=== PATIENT | male | born 1960 | race African-American/Black ===

== ENCOUNTER 2017-08-06 12:18 | Inpatient (IN) ==
[2017-08-06] MEDS ORDERED: Naloxone 0.4 MG/ML INJ IVP PRN (15:33)
--- NOTE | 2017-08-06 16:04 | Internal Med History&Physical ---
<Geni Wright - Last Filed: 08/06/17 16:44> Date of Encounter: 08/06/17 Time of Encounter: 16:00 Assessment and Plan (1) Hyponatremia Current visit: No Status: Acute 1 patient has a history of alcohol abuse consuming approximately a 12 pack daily. He had some outpatient labs drawn and was notified his sodium was 117. This is most likely related to fluid overload secondary to hepatic cirrhosis/ heart failure. Chest x-ray did reveal cardiomyopathy with mild vascular congestion. He does have ascites on his CT, with some lower extremity edema and a positive fluid wave. We will place patient on fluid restriction and initiate Lasix 20 mg every 8 hours 2 closely monitor chemistry every 6 hours 3 we will consult nephrology 4 place on seizure precautions-he does not appear to be displaying any seizure activity at this time he is somewhat confused (2) Congestive heart failure Current visit: Yes Status: Acute 1 patient has new onset of atrial flutter CT of abdomen did show some ascites as well as chest x-ray cardiomegaly with mild vascular congestion. BNP 1172 He does have some pedal edema and scattered rhonchi. We will obtain stat cardiac echo 2 Lasix IV 20 mg every 8 hours 3 continuous cardiac monitoring 4 consult cardiology Qualifiers: Congestive heart failure type: unspecified congestive heart failure type Congestive heart failure chronicity: acute Qualified Code(s): I50.9 - Heart failure, unspecified (3) History of alcoholism Current visit: Yes Status: Acute 1 patient consumes approximately 12 beers daily his last drink was yesterday for signs or symptoms of withdrawal this time. We will place on CIWA precautions 2 we will administer banana bag (4) Alcoholic hepatitis with ascites Current visit: No Status: Acute 1 patient has a history of alcohol consumption 12 beers daily presents with hyponatremia AST was 475 AST 423 alkaline phosphatase 157 total bili was 2.[address] of his abdomen did reveal mild ascites arytenoid edema diffuse body wall edema. Hepatomegaly and hepatic steatosis continue to monitor ammonia level. We will start on lactulose We will obtain a ultrasound of liver We will avoid hepatotoxins (5) Atrial flutter Current visit: Yes Status: Acute 1 this appears to be a new onset atrial flutter. We will obtain stat echo 2 continuous cardiac monitoring 3 consult cardiology Qualifiers: Atrial flutter type: unspecified Qualified Code(s): I48.92 - Unspecified atrial flutter (6) DVT prophylaxis Current visit: Yes Status: Acute Patient is lately it has are presently [address] on SCDs (7) Tobacco use Current visit: Yes Status: Acute Nicotine patch Internal Medicine - H&P: HPI Chief complaint: Hyponatremia Admitted From: Hospital to Hospital Transfer History of present illness: Mr. Vinson is a 56 year old male patient is a poor historian secondary to mental state, information mostly obtained from medical records and nursing staff. Apparently the patient has a history of COPD he is a smoker as well as a 12 pack of beer daily, he did have an anaphylactic reaction secondary to shellfish requiring tracheostomy a few years ago. Apparently the patient had some outpatient labs completed he was notified by physician that his sodium was low and he needs to go to the ER. He presented to the [facility] emergency department at that time his sodium was 117 cm 5 ammonia was 49 no leukocytosis iplatelets 115, PT 21.9 INR 2 PTT 32.9 troponin 0.02 BNP 1172 AST 475 AST 423 alkaline phosphatase 157 ammonia was 49 total bilirubin 2.9 and he was in atrial flutter and with RVR chest x-ray cardiomyopathy with mild vascular congestion CT of abdomen was completed which did reveal nonspecific mild ascites peritoneal edema and diffuse body wall edema hepatomegaly and hepatic steatosis and some perihepatic ascites. There is no evidence of mass or biliary obstruction. He was given IV Lasix. He was transferred to [facility] for further workup and evaluation. Presently patient is alert oriented 3 does follow simple commands however he does make inappropriate statements and at times has difficulty following conversation. Cranial nerves II through XII are intact. Full strength in all 4 extremities. Pupils PERRLA sclera icterus, lung sounds with some scattered rhonchi heart sounds regular S1 and S2 with no rubs clicks gallops or murmurs noted. Abdomen soft nontender he does have a fluid wave. He has slight pedal edema bilaterally. Patient does admit to not feeling well exertional shortness of breath and swelling over the past few months He appears to be sinus tachycardia on the monitor we will obtain EKG he is hemodynamically stable at this time. I reviewed this case with who agrees with plan. Past Med Surg Social Fam HX - Past Medical History Medical history: COPD, hypertension Psychiatric history: no psych history - Past Surgical History Surgical History: tracheostomy - Social History Smoking Status: Current every day smoker Packs per day: 0.5 Smokeless Tobacco Status: No Alcohol use: heavy Drug use: marijuana - Additional Family History Additional family history: Unable to review at this time due to mental state Internal Medicine - H&P: Meds No Known Home Drugs 08/06/17 [History] 3 Allergy/AdvReac Type Severity Reaction Status Date / Time shellfish derived Allergy Anaphylaxis Verified 08/06/17 10:10 ROS unobtainable: due to mental status All Systems PM: A 10-system review of systems was performed and is negative for pertinent findings except as documented above in the HPI. - Constitutional Vitals: Temp Pulse Resp BP Pulse Ox 97.4 F L 112 16 126/93 97 08/06/17 14:42 08/06/17 15:08 08/06/17 14:42 08/06/17 14:42 08/06/17 14:42 General appearance: Present: A&O X 3, pleasant Exam: At times has difficulty following conversation inappropriate statements at times - Eye Eye exam: Present: scleral icterus Pupils: Present: PERRL - Neck Neck exam general surgery: Present: supple, trachea midline. Absent: lymphadenopathy - Respiratory Respiratory exam: Present: rhonchi. Absent: accessory muscle use, rales, wheezes - Cardiovascular Cardiovascular exam: Present: RRR, +S1, +S2. Absent: diastolic murmur, gallop, rubs, systolic murmur - GI/Abdominal GI/Abdominal exam: Present: normal bowel sounds, soft, no peritoneal signs. Absent: distended, tenderness - Extremities Exam Extremities exam: Present: pedal edema, warm, radial pulses palpable and symmetrical. Absent: calf tenderness, cyanotic - Neurological Exam Neurological exam: Present: CN II-XII intact, oriented X3, no focal deficits, strengths equal and symetr throughout. Absent: pronater drift, facial droop, speech deficit - Skin Skin exam: Present: dry, intact Internal Med - H&P Results - EKG Data EKG comments: 08/06/17 16:25 Atrial flutter with RVR-reviewed with Dr. Hernandez - Diagnostic Studies Other Images Additional comments: Chest x-ray per radiology read cardiomegaly with mild vascular congestion CT abdomen and pelvis with no IV or oral contrast per radiology read: nonspecific mild ascites. She will edema and diffuse body wall edema which may relate to hyperkalemia in the setting of dilated cardiomyopathy. Findings suggesting anemia Hepatomegaly and hepatic steatosis there is some perihepatic ascites. Acute on chronic hepatitis cannot be excluded. There is no evidence of mass or biliary obstruction. <Cindy Nelson - Last Filed: 08/06/17 19:03> Date of Encounter: 08/06/17 Internal Medicine - H&P: HPI History of present illness: Mr. Vinson is a 56 year old male All Systems PM: A 10-system review of systems was performed and is negative for pertinent findings except as documented above in the HPI. - Constitutional Vitals: Temp Pulse Resp BP Pulse Ox 97.4 F L 112 16 126/93 97 08/06/17 14:42 08/06/17 15:08 08/06/17 14:42 08/06/17 14:42 08/06/17 14:42 Internal Med - H&P Results - Impressions ITS Impressions Head CT 08/06/17 15:20 IMPRESSION: No acute intracranial abnormality. D/ / Nicholas Vicente MD / Nicholas Vicente MD Interpreting Provider: Nicholas Vicente MD - Attending Attestation I have personally performed a face to face evaluation on this patient and I discussed the assessment and plan with the nurse practitioner. I have reviewed and agree with the documented care plan. History and Exam by me shows: Mr. Vinson is a 56 year old male patient is a poor historian secondary to mental state, information mostly obtained from medical records and nursing staff. Apparently the patient has a history of COPD he is a smoker as well as a 12 pack of beer daily, he did have an anaphylactic reaction secondary to shellfish requiring tracheostomy a few years ago. Apparently the patient had some outpatient labs completed he was notified by physician that his sodium was low and he needs to go to the ER. He presented to the [facility] emergency department at that time his sodium was 117 cm 5 ammonia was 49 no leukocytosis iplatelets 115, PT 21.9 INR 2 PTT 32.9 troponin 0.02 BNP 1172 AST 475 AST 423 alkaline phosphatase 157 ammonia was 49 total bilirubin 2.9 and he was in atrial flutter and with RVR chest x-ray cardiomyopathy with mild vascular congestion CT of abdomen was completed which did reveal nonspecific mild ascites peritoneal edema and diffuse body wall edema hepatomegaly and hepatic steatosis and some perihepatic ascites. Gen : A, A, Oriented to self only..looks confused Chest : Diminished BS b/l, mild crackles Heart : S1 S2 + Sinus tachycardia Abd: Mildly distended, NT Ext : Diffuse b/l LE edema a/p 1. Acute atrial flutter with RVR due to Alcohol withdrawal DT's 2. Alcohol withdrawal symptoms Improved Now in sinus rythm Cont CIWA protocol ASA 3. Diffuse anasarca 4. Possible non ischemic cardiomyopathy check stat 2 D Echo IV Lasix 20 Q8hr 5. Hyponatremia due to volume overload check frequent Na levels IV Lasix Nephro consulted
[2017-08-06] MEDS ORDERED: Thiamine (B-1) 100 MG, Folic Acid 1 MG, MVI, adult with vitamin K 10 ML in 0.9 % Sodi... IVPB SCH (18:00)
[2017-08-06 19:16] LABS: BUN/Creatinine Ratio 12 (6-26); Blood Urea Nitrogen 10 mg/dL (8-26); Calcium 9.1 mg/dL (8.6-10.8); Carbon Dioxide 17 mEq/L (19-29); Chloride 94 mEq/L (98-109); Glucose 94 mg/dL (70-99); Magnesium 1.5 mg/dL (1.6-2.6); Osmolality,Calculated 255 (280-300); Potassium 4.2 mEq/L (3.5-4.5); eGFR For African Americans > 60 (> 60); eGFR For Non-African Americans > 60 (> 60)
[2017-08-06 19:17] LABS: Sodium 123 mEq/L (136-145)
[2017-08-06 19:21] LABS: Basophils % 0.1 %; Hematocrit 30.7 % (37.5-50.1); Hemoglobin 11.6 g/dL (12.9-16.9); Immature Granulocytes % 0.3 % (0-4); Lymphocytes % 28.3 %; Mean Corpuscular Hemoglobin 31.4 pg (28.0-33.3); Mean Platelet Volume 10.1 fL (9.4-12.4); Monocytes # 0.8 K/mcL (0.0-1.3); Monocytes % 11.8 %; Neutrophils # 4.2 K/mcL (1.6-8.9); Nucleated Red Blood Cells 0.3 /100 WBC (0); Platelet Count 129 K/mcL (140-400); Red Cell Distribution Width 12.9 % (11.5-14.5); Segmented Neutrophils % 59.5 %
[2017-08-06 19:24] LABS: Mean Corpuscular HGB Conc 37.8 g/dL (31.6-35.5)
[2017-08-06] MEDS: *HR* LORazepam 2 MG/ML VIAL IVP PRN ×2 (20:11→21:28)
[2017-08-06] MEDS: Furosemide 20 MG/2 ML VIAL IVP SCH (20:11)
[2017-08-06] MEDS: Lactulose Oral Soln 20 GM/30 ML UDC PO SCH (20:11)
[2017-08-06] MEDS ORDERED: Magnesium Sulfate 2 GM in D5% in Water 100 ML IVPB ONE (20:31)
[2017-08-06 22:14] LABS: BUN/Creatinine Ratio 11 (6-26); Blood Urea Nitrogen 9 mg/dL (8-26); Calcium 8.5 mg/dL (8.6-10.8); Carbon Dioxide 17 mEq/L (19-29); Chloride 94 mEq/L (98-109); Glucose 111 mg/dL (70-99); Osmolality,Calculated 259 (280-300); Potassium 3.8 mEq/L (3.5-4.5); Sodium 125 mEq/L (136-145); eGFR For African Americans > 60 (> 60); eGFR For Non-African Americans > 60 (> 60)
[2017-08-07] MEDS: *HR* LORazepam 2 MG/ML VIAL IVP PRN ×6 (00:06→21:32)
[2017-08-07 03:51] LABS: Basophils % 0.1 %; Hematocrit 31.6 % (37.5-50.1); Hemoglobin 11.6 g/dL (12.9-16.9); Immature Granulocytes % 0.3 % (0-4); Lymphocytes # 0.9 K/mcL (0.6-4.6); Mean Corpuscular HGB Conc 36.7 g/dL (31.6-35.5); Mean Corpuscular Hemoglobin 30.9 pg (28.0-33.3); Mean Corpuscular Volume 84.3 fL (83.0-100.0); Mean Platelet Volume 10.1 fL (9.4-12.4); Monocytes # 0.7 K/mcL (0.0-1.3); Monocytes % 9.4 %; Neutrophils # 5.8 K/mcL (1.6-8.9); Nucleated Red Blood Cells 0.3 /100 WBC (0); Platelet Count 148 K/mcL (140-400); Red Blood Count 3.75 M/mcL (4.19-5.50); Red Cell Distribution Width 12.9 % (11.5-14.5); Segmented Neutrophils % 78.2 %
[2017-08-07 03:59] LABS: BUN/Creatinine Ratio 12 (6-26); Blood Urea Nitrogen 10 mg/dL (8-26); Calcium 8.8 mg/dL (8.6-10.8); Carbon Dioxide 18 mEq/L (19-29); Chloride 94 mEq/L (98-109); Glucose 117 mg/dL (70-99); Osmolality,Calculated 262 (280-300); Potassium 3.9 mEq/L (3.5-4.5); Sodium 126 mEq/L (136-145); eGFR For African Americans > 60 (> 60); eGFR For Non-African Americans > 60 (> 60)
[2017-08-07] MEDS: Furosemide 20 MG/2 ML VIAL IVP SCH ×2 (03:59→12:09)
[2017-08-07 04:00] LABS: BUN/Creatinine Ratio 12 (6-26); Blood Urea Nitrogen 10 mg/dL (8-26); Calcium 8.7 mg/dL (8.6-10.8); Carbon Dioxide 18 mEq/L (19-29); Chloride 94 mEq/L (98-109); Glucose 117 mg/dL (70-99); INR 1.9; Osmolality,Calculated 260 (280-300); Potassium 3.9 mEq/L (3.5-4.5); Prothrombin Time 20.6 Seconds (9.4-12.1); Sodium 125 mEq/L (136-145); eGFR For African Americans > 60 (> 60); eGFR For Non-African Americans > 60 (> 60)
[2017-08-07 04:03] LABS: Activated Partial Thrombo Time 30.7 Seconds (26.0-36.0)
[2017-08-07 08:31] LABS: BUN/Creatinine Ratio 12 (6-26); Blood Urea Nitrogen 10 mg/dL (8-26); Calcium 8.7 mg/dL (8.6-10.8); Carbon Dioxide 20 mEq/L (19-29); Chloride 93 mEq/L (98-109); Glucose 103 mg/dL (70-99); Osmolality,Calculated 263 (280-300); Potassium 3.9 mEq/L (3.5-4.5); Sodium 127 mEq/L (136-145); eGFR For African Americans > 60 (> 60); eGFR For Non-African Americans > 60 (> 60)
--- NOTE | 2017-08-07 09:54 | Cardiology Consult Note ---
<Keyshawn Watkins - Last Filed: 08/07/17 09:48> Date of Encounter: 08/07/17 Time of Encounter: 08:00 Assessment and Plan (1) Acute CHF (congestive heart failure) Current Visit: Yes Status: Acute Mild fluid overload on exam. BNP 1172. Na low. Unclear if systolic or diastolic. Check TTE. Agree with IV diuretic. Currently net negative 400ml. Low sodium diet. Daily weights. Further recommendation to follow TTE. Qualifiers: Congestive heart failure type: unspecified congestive heart failure type Qualified Code(s): I50.9 - Heart failure, unspecified (2) Atrial flutter Current Visit: Yes Status: Acute Atrial flutter rate controlled. Likely secondary to ETOH abuse. Continue beta- brennon. INR 2.0 on admission while not on anticoagulation. Not a good candidate for AC with elevated INR and ETOH abuse. Check TTE. Check TSH. Qualifiers: Atrial flutter type: unspecified Qualified Code(s): I48.92 - Unspecified atrial flutter (3) History of alcoholism Current Visit: Yes Status: Acute ETOH cessation. On withdrwl protocal. Discussion w patient/family: The assessment and plan as outlined above was discussed with the patient and/or family members who expressed understanding and agreement. All questions were answered. Thank you for involving us in the care of your patient. Please call with any questions. History of Present Illness Consult date: 08/07/17 Requesting physician: Cindy Nelson Consult reason: CHF Chief complaint: confusion History of present illness: Mr. Vinson is a 56 year old male who was instructed to go to the ER when he was found to have sodium at 117 by PCP. He whas a history of COPD, ETOH abise, and previous tracheostomy secondary to anaphylaxis from shell fish. On exam he is confused and hallucinating. No acute distress noted. He is laying in trendelenburg breathing normal. He is being treated for ETOH withdraw. Cardiology consulted for acute CHF and new atrial flutter. BNP found to be 3000. CXR showed cardiomegaly and vascular congestion. he has no previous history. Past Med Surg Social Fam HX - Past Medical History Source: old records reviewed, other (Patient confused and innappropiate) Medical history: COPD, hypertension Psychiatric history: no psych history - Past Surgical History Surgical History: tracheostomy - Social History Smoking Status: Current every day smoker Packs per day: 0.5 Smokeless Tobacco Status: No Alcohol use: heavy Drug use: marijuana Medications and Allergies No Known Home Drugs 08/06/17 [History] 3 Allergy/AdvReac Type Severity Reaction Status Date / Time shellfish derived Allergy Anaphylaxis Verified 08/06/17 10:10 All Systems Review: A 10-system review of systems was performed and is negative for pertinent findings except as documented above in the HPI. Physical Examination Vital Signs, Last 4 Hours Temp Pulse Resp BP Pulse Ox 08/07/17 09:03 114 08/07/17 08:10 97.4 F L 114 18 123/90 96 General: No Apparent Distress, Other (confused) HEENT: Atraumatic, Normocephaly, Mucus Membranes Moist Neck: No JVD, Normal carotid pulses Cardiac: Other (Irregular) Lungs: Normal Breath Sounds, No Wheeze, Rales, Rhonchi Neuro: Alert and responsive, No focal deficits noted Abdomen: Soft, Non-Tender Skin: No rashes noted on visualized skin Musculoskeletal: No Chest Wall Tenderness Extremities: No Clubbing, No Cyanosis, Normal Pulses, Other (1+ BLE edema) Results 08/07/17 03:07 08/07/17 07:14 Lab Results 08/06/17 08/06/17 08/06/17 16:06 16:06 16:06 WBC 7.1 Hgb 11.6 L Hct 30.7 L Plt Count 129 L INR APTT Sodium 123 L D Potassium 4.2 Chloride 94 L Carbon Dioxide 17 L BUN 10 Creatinine 0.84 Glucose 94 Calcium 9.1 Magnesium 1.5 L Troponin I 0.04 H* 08/06/17 08/06/17 08/07/17 21:52 21:52 03:07 WBC Hgb Hct Plt Count INR APTT Sodium 125 L Potassium 3.8 Chloride 94 L Carbon Dioxide 17 L BUN 9 Creatinine 0.85 Glucose 111 H Calcium 8.5 L Magnesium Troponin I 0.02 0.02 08/07/17 08/07/17 08/07/17 03:07 03:07 03:07 WBC 7.5 Hgb 11.6 L Hct 31.6 L Plt Count 148 INR 1.9 APTT 30.7 Sodium 125 L Potassium 3.9 Chloride 94 L Carbon Dioxide 18 L BUN 10 Creatinine 0.85 Glucose 117 H Calcium 8.7 Magnesium 2.0 Troponin I 08/07/17 08/07/17 03:07 07:14 WBC Hgb Hct Plt Count INR APTT Sodium 126 L 127 L Potassium 3.9 3.9 Chloride 94 L 93 L Carbon Dioxide 18 L 20 BUN 10 10 Creatinine 0.84 0.85 Glucose 117 H 103 H Calcium 8.8 8.7 Magnesium Troponin I - Imaging and Cardiology Echo: pending - EKG Interpretation EKG results cardiology: personally reviewed (2:1 atrial flutter, HR 113.) Consult Discharge Plan - Plan Referrals: Jody Whitley, [employer]WR[employer] [Primary Care Provider] - <CiscodebraKrysten - Last Filed: 08/07/17 12:47> Date of Encounter: 08/07/17 Assessment and Plan Discussion w patient/family: The assessment and plan as outlined above was discussed with the patient and/or family members who expressed understanding and agreement. All questions were answered. Thank you for involving us in the care of your patient. Please call with any questions. History of Present Illness History of present illness: Mr. Vinson is a 56 year old male All Systems Review: A 10-system review of systems was performed and is negative for pertinent findings except as documented above in the HPI. Physical Examination Vital Signs, Last 4 Hours Temp Pulse Resp BP Pulse Ox 08/07/17 11:41 96.2 F L 114 16 112/92 99 08/07/17 09:03 114 Results 08/07/17 03:07 08/07/17 07:14 Lab Results 08/06/17 08/06/17 08/06/17 16:06 16:06 16:06 WBC 7.1 Hgb 11.6 L Hct 30.7 L Plt Count 129 L INR APTT Sodium 123 L D Potassium 4.2 Chloride 94 L Carbon Dioxide 17 L BUN 10 Creatinine 0.84 Glucose 94 Calcium 9.1 Magnesium 1.5 L Troponin I 0.04 H* TSH 08/06/17 08/06/17 08/07/17 21:52 21:52 03:07 WBC Hgb Hct Plt Count INR APTT Sodium 125 L Potassium 3.8 Chloride 94 L Carbon Dioxide 17 L BUN 9 Creatinine 0.85 Glucose 111 H Calcium 8.5 L Magnesium Troponin I 0.02 0.02 TSH 08/07/17 08/07/17 08/07/17 03:07 03:07 03:07 WBC 7.5 Hgb 11.6 L Hct 31.6 L Plt Count 148 INR 1.9 APTT 30.7 Sodium 125 L Potassium 3.9 Chloride 94 L Carbon Dioxide 18 L BUN 10 Creatinine 0.85 Glucose 117 H Calcium 8.7 Magnesium 2.0 Troponin I TSH 08/07/17 08/07/17 03:07 07:14 WBC Hgb Hct Plt Count INR APTT Sodium 126 L 127 L Potassium 3.9 3.9 Chloride 94 L 93 L Carbon Dioxide 18 L 20 BUN 10 10 Creatinine 0.84 0.85 Glucose 117 H 103 H Calcium 8.8 8.7 Magnesium Troponin I TSH 1.150 - Attending Attestation I examined this patient and my medical decision-making was reviewed with the Resident Physician. I agree with the documented findings, disposition and treatment plan. Cardiology consulted for newly discovered atrial flutter and concern for CHF. BNP 3000 and CXR demonstrates vascular congestion. He has no prior documented history of CHF and history taking is not attainable given patients altered mental state. At this time recommend an echo for evaluation of structural heart disease. Agree with IV diuresis. Will increase BB for better HR control. Not a candidate for oral anticoagulants given coagulopathy and concern for compliance with medications.
[2017-08-07] MEDS: Thiamine (B-1) 100 MG TABLET PO SCH (09:57)
[2017-08-07] MEDS: Lactulose Oral Soln 20 GM/30 ML UDC PO SCH ×3 (09:57→19:31)
[2017-08-07] MEDS: Folic Acid 1 MG TABLET PO SCH (09:57)
[2017-08-07] MEDS: Pantoprazole 40 MG VIAL IVP SCH (09:58)
[2017-08-07 13:22] LABS: BUN/Creatinine Ratio 10 (6-26); Blood Urea Nitrogen 9 mg/dL (8-26); Calcium 8.9 mg/dL (8.6-10.8); Carbon Dioxide 23 mEq/L (19-29); Chloride 93 mEq/L (98-109); Glucose 99 mg/dL (70-99); Osmolality,Calculated 263 (280-300); Potassium 3.7 mEq/L (3.5-4.5); Sodium 127 mEq/L (136-145); eGFR For African Americans > 60 (> 60); eGFR For Non-African Americans > 60 (> 60)
--- NOTE | 2017-08-07 13:25 | Nephrology Consult Note ---
Date of Encounter: 08/07/17 Time of Encounter: 12:54 Assessment and Plan (1) Hyponatremia Current Visit: Yes Status: Acute 1. Hypervolemic Hypo-osmolar hyponatemia on exam. serum sodium has improved by 10 appropriately in the last 24 hrs. continue lasix, monitor I and O. F/U renal panel and magnesium, supplement as needed. Check UA. f/u 2d echo 2. Polysubstance abuse, alcohol withdrawl, cont CIWA protocol History of Present Illness - Reason for Consult hyponatremia - Chief Complaint Hyponatremia - History of Present Illness 56 yr old male with COPD, HTN, active smoker, alcoholic was sent to hospital as serum sodium was 117 on the out pt labs. pt was noted to be oriented x 3, but inappropriate intermittently. noted to be is A.FIB with RVR, hr 114. bp was stable CXR; mild vascular congestion CT ABD; mild ascites, diffuse body wall edema, hepatomegaly with steatosis CT head was neg for acute abnormality received iv lasix, placed on CIWA protocol and admitted for further management Past Med Surg Social Fam HX - Past Medical History Medical history: COPD, hypertension Psychiatric history: no psych history - Past Surgical History Surgical History: tracheostomy - Social History Smoking Status: Current every day smoker Packs per day: 0.5 Smokeless Tobacco Status: No Alcohol use: heavy Drug use: marijuana Medications and Allergies No Known Home Drugs 08/06/17 [History] 3 Allergy/AdvReac Type Severity Reaction Status Date / Time shellfish derived Allergy Anaphylaxis Verified 08/06/17 10:10 Review of Systems All Systems review (narrative): pt is oriented to self, knows that he is in [place], aware on month and yr. speech is slurred, restless in bed, unable to obtain much information Exam - Vital Signs Vital signs: Initial Vital Signs Temp Pulse Resp BP Pulse Ox 97.4 F L 112 16 126/93 97 08/06/17 14:42 08/06/17 14:42 08/06/17 14:42 08/06/17 14:42 08/06/17 14:42 Vital Signs - Last 8 Hours Temp Pulse Resp BP Pulse Ox 08/07/17 11:41 96.2 F L 114 16 112/92 99 08/07/17 09:03 114 08/07/17 08:10 97.4 F L 114 18 123/90 96 Intake and Output 08/06/17 08/07/17 08/07/17 23:59 07:59 15:59 Other: Meal npo # Voids 2 2 Weight 76.1 kg 77 kg Patient Weight 08/07/17 23:59 Weight 77 kg - General Appearance Exam: HENT; PERRL,no palor, icterus present NECK; supple, no JVD, no ldn CVS; s1s2 present. 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
--- NOTE | 2017-08-07 15:48 | Internal Med Progress Note ---
Date of Encounter: 08/07/17 Time of Encounter: 10:00 - Assessment and plan (1) Hepatic encephalopathy Current Visit: Yes Status: Acute Assessment and plan: Could be secondary to alcohol and hepatitis versus viral hepatitis and liver cirrhosis. We will check stat LFTs. Ammonia level was normal. Aspiration precautions. Check Tylenol level. (2) History of alcoholism Current Visit: Yes Status: Acute Assessment and plan: Alcohol withdrawal protocol. (3) Atrial flutter Current Visit: Yes Status: Acute Assessment and plan: He was found to be in atrial flutter. Currently in normal sinus rhythm. We will monitor on telemetry. Avoid anticoagulation due to alcoholism and high risk for falls and intracranial bleed. Qualifiers: Atrial flutter type: unspecified Qualified Code(s): I48.92 - Unspecified atrial flutter (4) DVT prophylaxis Current Visit: Yes Status: Acute Assessment and plan: SCDs. (5) Tobacco use Current Visit: Yes Status: Acute Assessment and plan: Nicotine replacement therapy. (6) Acute CHF (congestive heart failure) Current Visit: Yes Status: Acute Assessment and plan: IV Lasix. Cardiology consult. Qualifiers: Congestive heart failure type: unspecified congestive heart failure type Qualified Code(s): I50.9 - Heart failure, unspecified (7) Hyponatremia Current Visit: Yes Status: Acute Assessment and plan: We will institute fluid restriction 1400 mL daily. Monitor sodium levels daily. - Subjective Interval history: The patient cannot provide any history due to confusion and altered mental status. He was admitted yesterday for evaluation of altered mental status, atrial flutter and anasarca. - Constitutional Vitals: Temp Pulse Resp BP Pulse Ox 97.7 F 114 24 107/86 99 08/07/17 15:37 08/07/17 15:37 08/07/17 15:37 08/07/17 15:37 08/07/17 15:37 General appearance: Present: A&O X 3, pleasant - Eye Eye exam: Present: PERRL, conjuntiva pink, sclera anicteric Pupils: Present: PERRL - Respiratory Respiratory exam: Present: CTAB. Absent: accessory muscle use, rhonchi, wheezes - Cardiovascular Cardiovascular exam: Present: RRR, +S1, +S2. Absent: diastolic murmur, gallop, rubs, systolic murmur - GI/Abdominal GI/Abdominal exam: Present: normal bowel sounds, soft, no peritoneal signs. Absent: distended, tenderness - Extremities Exam Extremities exam: Present: warm, radial pulses palpable and symmetrical. Absent : calf tenderness, cyanotic, pedal edema - Skin Skin exam: Present: dry, intact Internal Medicine: Result - Labs CBC & Chem 7: 08/07/17 03:07 08/07/17 12:50 Labs: Short CBC 08/06/17 08/07/17 Range/Units 16:06 03:07 WBC 7.1 7.5 (4.3-11.1) K/mcL Hgb 11.6 L 11.6 L (12.9-16.9) g/dL Hct 30.7 L 31.6 L (37.5-50.1) % Plt Count 129 L 148 (140-400) K/mcL Neutrophils # 4.2 5.8 (1.6-8.9) K/mcL BMP 08/06/17 08/06/17 08/07/17 16:06 21:52 03:07 Sodium 123 L D 125 L 125 L Potassium 4.2 3.8 3.9 Chloride 94 L 94 L 94 L Carbon Dioxide 17 L 17 L 18 L BUN 10 9 10 Creatinine 0.84 0.85 0.85 Glucose 94 111 H 117 H Calcium 9.1 8.5 L 8.7 08/07/17 08/07/17 08/07/17 03:07 07:14 12:50 Sodium 126 L 127 L 127 L Potassium 3.9 3.9 3.7 Chloride 94 L 93 L 93 L Carbon Dioxide 18 L 20 23 BUN 10 10 9 Creatinine 0.84 0.85 0.87 Glucose 117 H 103 H 99 Calcium 8.8 8.7 8.9 Cardiac Enzymes 08/06/17 08/06/17 08/07/17 Range/Units 16:06 21:52 03:07 Troponin I 0.04 H* 0.02 0.02 (0-0.03) ng/mL - ABG Interpretation ABG results: PT/INR, D-dimer PT 20.6 Seconds (9.4-12.1) H 08/07/17 03:07 - Impressions Impressions Head CT 08/06/17 15:20 IMPRESSION: No acute intracranial abnormality. D/ / Nicholas Vicente MD / Nicholas Vicente MD Interpreting Provider: Nicholas Vicente MD Liver Ultrasound 08/07/17 08:45 IMPRESSION: 1. The visualized portion the pancreas appears normal. 2. Significant hepatic steatosis. No intrahepatic mass. 3. Nonspecific mild perihepatic and pericholecystic ascites. 4. Biliary sludge with no evidence of cholelithiasis or findings to suggest acute cholecystitis. D/ / 08/07/2017 10:05:41 Dusty Jamil MD / nadine Interpreting Provider: Dusty Jamil MD Consult Discharge Plan - Plan Referrals: Jody Whitley, POWERTRAIN DESIGN ENGINEER [Primary Care Provider] -
[2017-08-07 16:44] LABS: Bilirubin,Indirect 1.3 mg/dL (0.0-1.2); Bilirubin,Total 2.1 mg/dL (0.2-1.2); Globulin 3.1 g/dL (2.4-3.5); Total Protein 6.1 g/dL (6.0-8.3)
[2017-08-07 16:46] LABS: Bilirubin,Direct 0.8 mg/dL (0.0-0.5)
[2017-08-07] MEDS: Furosemide 40 MG/4 ML VIAL IVP SCH (17:08)
[2017-08-07 22:27] LABS: Bilirubin,Urine Negative (Negative); Blood,Urine Negative (Negative); Clarity,Urine Clear (Clear); Color,Urine Yellow (Yellow); Glucose,Urine (UA) Normal (Normal); Ketones,Urine Negative (Negative); Leukocyte Esterase,Urine Negative (Negative); Nitrite,Urine Negative (Negative); Protein,Urine Negative (Neg-Trace); Specific Gravity,Urine 1.012 (1.010-1.025); Urobilinogen,Urine Normal (Normal)
[2017-08-08 07:42] LABS: Eosinophils % 0.1 %; Hematocrit 31.5 % (37.5-50.1); Hemoglobin 11.4 g/dL (12.9-16.9); Immature Granulocytes % 0.3 % (0-4); Lymphocytes % 30.2 %; Mean Corpuscular HGB Conc 36.2 g/dL (31.6-35.5); Mean Corpuscular Hemoglobin 30.3 pg (28.0-33.3); Mean Corpuscular Volume 83.8 fL (83.0-100.0); Mean Platelet Volume 9.3 fL (9.4-12.4); Monocytes % 10.5 %; Platelet Count 166 K/mcL (140-400); Red Blood Count 3.76 M/mcL (4.19-5.50); Segmented Neutrophils % 58.8 %
[2017-08-08] MEDS: Lactulose Oral Soln 20 GM/30 ML UDC PO SCH ×3 (07:42→20:01)
[2017-08-08] MEDS: Thiamine (B-1) 100 MG TABLET PO SCH (07:42)
[2017-08-08 07:43] LABS: Basophils % 0.1 %; Lymphocytes # 2.2 K/mcL (0.6-4.6); Monocytes # 0.8 K/mcL (0.0-1.3); Neutrophils # 4.2 K/mcL (1.6-8.9)
[2017-08-08] MEDS: Furosemide 40 MG/4 ML VIAL IVP SCH (07:43)
[2017-08-08] MEDS: Folic Acid 1 MG TABLET PO SCH (07:43)
[2017-08-08] MEDS: *HR* LORazepam 2 MG/ML VIAL IVP PRN ×3 (07:43→18:33)
[2017-08-08] MEDS: Pantoprazole 40 MG VIAL IVP SCH (07:43)
[2017-08-08 07:57] LABS: Alanine Aminotransferase 380 Units/L (0-55); Albumin/Globulin Ratio 1.1 (1.1-2.2); Alkaline Phosphatase 152 Units/L (38-126); Aspartate Amino Transferase 271 Units/L (5-34); BUN/Creatinine Ratio 11 (6-26); Bilirubin,Direct 1.2 mg/dL (0.0-0.5); Bilirubin,Indirect 0.8 mg/dL (0.0-1.2); Blood Urea Nitrogen 9 mg/dL (8-26); Calcium 8.6 mg/dL (8.6-10.8); Carbon Dioxide 24 mEq/L (19-29); Chloride 96 mEq/L (98-109); Globulin 2.8 g/dL (2.4-3.5); Glucose 97 mg/dL (70-99); Magnesium 1.4 mg/dL (1.6-2.6); Osmolality,Calculated 271 (280-300); Phosphorous 3.2 mg/dL (2.3-4.7); Potassium 3.2 mEq/L (3.5-4.5); Sodium 131 mEq/L (136-145); Total Protein 5.8 g/dL (6.0-8.3); Uric Acid 8.9 mg/dL (3.5-7.2); eGFR For African Americans > 60 (> 60); eGFR For Non-African Americans > 60 (> 60)
--- NOTE | 2017-08-08 11:42 | Nephrology Progress Note ---
Date of Encounter: 08/08/17 Time of Encounter: 11:20 - Assessment and Plan (1) Hyponatremia Current Visit: Yes Status: Acute 1. hypervolemic hyponatremia in the setting of acute hepatitis/cirrhosis and CHF. serum sodium has improved. continue lasix. f/u 2D echo. 2. Hypokalemia and ypomagnesemia sec to lasix. Suppl as needed will sign off, please reconsult if needed Subjective Principal diagnosis: Hyponatremia Interval history: Stable overnight. BP stable, HR 114-117. UO 1400 ML documented. pt is incontenent as well. has slurred speech, hard to understand at times. follows commands Objective - Vital Signs Vital signs: Vital Signs Temp Pulse Resp BP Pulse Ox 08/08/17 07:42 97.1 F L 117 20 119/94 97 08/08/17 03:31 97.8 F 114 24 106/84 92 08/08/17 01:29 98.2 F 118 22 122/65 95 08/07/17 21:28 97.8 F 118 22 109/79 97 08/07/17 15:37 97.7 F 114 24 107/86 99 08/07/17 11:41 96.2 F L 114 16 112/92 99 Intake and Output 08/07/17 08/08/17 08/08/17 23:59 07:59 15:59 Intake Total 100 / 100 60 / 60 Output Total 1300 / 1300 500 / 500 Balance -1200 / -1200 -440 / -440 Intake: Oral 100 / 100 60 / 60 Output: Urine 1300 / 1300 500 / 500 Other: Meal Breakfast Percent of Meal Consumed 0% # Urine Diapers 1 1 Weight 72.4 kg Patient Weight 08/08/17 23:59 Weight 72.4 kg - General Appearance Exam: CVS; s1s2 present, tachycardic RESP; good air entry ABD;soft, NT, BS present EXT;no edema - Lab 08/08/17 07:24 08/08/17 07:24 Most recent lab results Calcium 8.6 mg/dL (8.6-10.8) 08/08/17 07:24 Phosphorus 3.2 mg/dL (2.3-4.7) 08/08/17 07:24 Magnesium 1.4 mg/dL (1.6-2.6) L 08/08/17 07:24 Consult Discharge Plan - Plan Referrals: Jody Whitley, WILBER [Primary Care Provider] -
--- NOTE | 2017-08-08 12:37 | Cardiology Progress Note ---
Date of Encounter: 08/08/17 Time of Encounter: 12:35 Assessment and Plan (1) Acute CHF (congestive heart failure) Current Visit: Yes Status: Acute Acute systolc left and right sided CHF. TTE shows EF 25%-30%, Global systolic dysfunction with regional variations. RV size normal with severely reduced function. Mild aortic regurgitation, moderate mitral regurgitation, mild pulmonic, and tricuspid regurgitation. Mild PHTN. No previous reports to compare. Mild fluid overload on exam. BNP 1772. Continue IV diuretic. K-3.2, replacement given. Currently net negative 2160 ml. Change lopressor to toprol XL and increase as tolerated. Will consider adding Robin-inhibitor if b/p allows. Low sodium diet. Daily weights. Not a candidate for ischemic evaluation at this time as he is going through acute ETOH withdrawl and INR elevated. Consider LHC once stable. Qualifiers: Congestive heart failure type: systolic Qualified Code(s): I50.21 - Acute systolic (congestive) heart failure (2) Atrial flutter Current Visit: Yes Status: Acute Atrial flutter with RVR. Likely secondary to ETOH abuse. Continue beta-brennon. Increase as tolerated. HR 120's. INR 2.0 on admission while not on anticoagulation. Not a good candidate for AC with elevated INR and ETOH abuse. Qualifiers: Atrial flutter type: unspecified Qualified Code(s): I48.92 - Unspecified atrial flutter (3) History of alcoholism Current Visit: Yes Status: Acute ETOH cessation. On withdrwl protocal. Discussion w patient/family: The assessment and plan as outlined above was discussed with the patient and/or family members who expressed understanding and agreement. All questions were answered. Thank you for involving us in the care of your patient. Please call with any questions. Subjective Principal diagnosis: Acute systolic CHF Interval history: Mr. Vinson continues to be confused and unable to participate in conversation. No distress noted. Objective Vital Signs, Last 4 Hours Temp Pulse Resp BP Pulse Ox 08/08/17 11:24 97.5 F L 118 20 102/83 99 General: Other (Confused, hallucinating, does not follow commands) HEENT: Atraumatic, Normocephaly, Mucus Membranes Moist Neck: No JVD, Normal carotid pulses Cardiac: Other (Irregular) Lungs: Normal Breath Sounds, No Wheeze, Rales, Rhonchi Abdomen: Soft, Non-Tender Skin: No rashes noted on visualized skin Musculoskeletal: No Chest Wall Tenderness Extremities: No Clubbing, No Cyanosis, No Edema, Normal Pulses, Other (Trace BLE edema) Results 08/08/17 07:24 08/08/17 07:24 Lab Results 08/07/17 08/07/17 08/07/17 07:14 12:50 16:20 WBC Hgb Hct Plt Count Sodium 127 L Potassium 3.7 Chloride 93 L Carbon Dioxide 23 BUN 9 Creatinine 0.87 Glucose 99 Calcium 8.9 Magnesium Total Bilirubin 2.1 H AST 353 H ALT 412 H Alkaline Phosphatase 150 H TSH 1.150 08/08/17 08/08/17 07:24 07:24 WBC 7.2 Hgb 11.4 L Hct 31.5 L Plt Count 166 Sodium 131 L Potassium 3.2 L Chloride 96 L Carbon Dioxide 24 BUN 9 Creatinine 0.80 Glucose 97 Calcium 8.6 Magnesium 1.4 L Total Bilirubin 2.0 H AST 271 H ALT 380 H Alkaline Phosphatase [address] 08/06/17 15:20 IMPRESSION: No acute intracranial abnormality. D/ / Nicholas Vicente MD / Nicholas Vicente MD Interpreting Provider: Nicholas Vicente MD Liver Ultrasound 08/07/17 08:45 IMPRESSION: 1. The visualized portion the pancreas appears normal. 2. Significant hepatic steatosis. No intrahepatic mass. 3. Nonspecific mild perihepatic and pericholecystic ascites. 4. Biliary sludge with no evidence of cholelithiasis or findings to suggest acute cholecystitis. D/ / 08/07/2017 10:05:41 uDsty Jamil MD / donnayer Interpreting Provider: Dusty Jamil MD Consult Discharge Plan - Plan Referrals: Jody Whitley, CORRESPONDENCE RENEW CLERK [Primary Care Provider] -
[2017-08-08] MEDS: Metoprolol XL (24 HR) Succ 25 MG TAB.ER.24H PO SCH (14:40)
--- NOTE | 2017-08-08 16:28 | Internal Med Progress Note ---
Date of Encounter: 08/08/17 Time of Encounter: 13:00 - Assessment and plan (1) Hepatic encephalopathy Current Visit: Yes Status: Acute Assessment and plan: Could be secondary to alcohol and hepatitis versus viral hepatitis and liver cirrhosis. LFTs are trending down consistent alcohol-induced transaminitis. Ammonia level was normal. Aspiration precautions. Tylenol level is undetectable. (2) History of alcoholism Current Visit: Yes Status: Acute Assessment and plan: Alcohol withdrawal protocol. (3) Atrial flutter Current Visit: Yes Status: Acute Assessment and plan: Currently in atrial flutter with rapid ventricular response. Follow-up with cardiology. Continue with metoprolol. We will monitor on telemetry. Avoid anticoagulation due to alcoholism and elevated INR. Qualifiers: Atrial flutter type: unspecified Qualified Code(s): I48.92 - Unspecified atrial flutter (4) DVT prophylaxis Current Visit: Yes Status: Acute Assessment and plan: SCDs. (5) Tobacco use Current Visit: Yes Status: Acute Assessment and plan: Nicotine replacement therapy. (6) Acute CHF (congestive heart failure) Current Visit: Yes Status: Acute Assessment and plan: Ejection fraction is 25-30%. Continue IV Lasix. Strict I's and O's and daily weights. Follow-up with cardiology. Qualifiers: Congestive heart failure type: systolic Qualified Code(s): I50.21 - Acute systolic (congestive) heart failure (7) Hyponatremia Current Visit: Yes Status: Acute Assessment and plan: We will institute fluid restriction 1400 mL daily. Monitor sodium levels daily. - Subjective Interval history: The patient cannot provide any history due to encephalopathy. He was admitted for evaluation of altered mental status, atrial flutter and anasarca. - Constitutional Vitals: Temp Pulse Resp BP Pulse Ox 97.7 F 119 18 108/83 99 08/08/17 16:16 08/08/17 16:16 08/08/17 16:16 08/08/17 16:16 08/08/17 16:16 General appearance: Present: A&O X 2, pleasant - Eye Eye exam: Present: PERRL, scleral icterus, conjuntiva pink Pupils: Present: PERRL - Respiratory Respiratory exam: Present: CTAB. Absent: accessory muscle use, rales, rhonchi, wheezes - Cardiovascular Cardiovascular exam: Present: +S1, +S2, tachycardia (Tachycardic, regular). Absent: diastolic murmur, gallop, rubs, systolic murmur - GI/Abdominal GI/Abdominal exam: Present: normal bowel sounds, soft, no peritoneal signs. Absent: distended, tenderness - Extremities Exam Extremities exam: Present: warm, radial pulses palpable and symmetrical. Absent : calf tenderness, cyanotic, pedal edema - Skin Skin exam: Present: dry, intact Internal Medicine: Result - Labs CBC & Chem 7: 08/08/17 07:24 08/08/17 07:24 Labs: Short CBC 08/08/17 Range/Units 07:24 WBC 7.2 (4.3-11.1) K/mcL Hgb 11.4 L (12.9-16.9) g/dL Hct 31.5 L (37.5-50.1) % Plt Count 166 (140-400) K/mcL Neutrophils # 4.2 (1.6-8.9) K/mcL BMP 08/08/17 07:24 Sodium 131 L Potassium 3.2 L Chloride 96 L Carbon Dioxide 24 BUN 9 Creatinine 0.80 Glucose 97 Calcium 8.6 Liver Function 08/07/17 08/08/17 Range/Units 16:20 07:24 Total Bilirubin 2.1 H 2.0 H (0.2-1.2) mg/dL Direct Bilirubin 0.8 H 1.2 H (0.0-0.5) mg/dL AST 353 H 271 H (5-34) Units/L ALT 412 H 380 H (0-55) Units/L Alkaline Phosphatase 150 H 152 H (38-126) Units/L Albumin 3.0 L 3.0 L (3.5-5.0) g/dL Urine 08/07/17 Range/Units 17:15 Urine Color Yellow (Yellow) Urine Clarity Clear (Clear) Urine pH 5.0 (5.0-8.0) pH Units Ur Specific [place] 1.012 (1.010-1.025) Urine Protein Negative (Neg-Trace) mg/dL Urine Glucose (UA) Normal (Normal) mg/dL - ABG Interpretation ABG results: PT/INR, D-dimer PT 20.6 Seconds (9.4-12.1) H 08/07/17 03:07 Consult Discharge Plan - Plan Referrals: Jody Whitley, BUSINESS IMPROVEMENT MANAGER [Primary Care Provider] -
[2017-08-08] MEDS ORDERED: *HR* Metoprolol 5 MG/5 ML VIAL IVP PRN (18:00)
[2017-08-08] MEDS: Furosemide 20 MG/2 ML VIAL IVP SCH (18:08)
[2017-08-08] MEDS: Magnesium Sulfate 2 GM in D5% in Water 100 ML IVPB PRN (18:46)
[2017-08-09 01:37] LABS: Magnesium 1.9 mg/dL (1.6-2.6)
[2017-08-09 01:42] LABS: Potassium 3.6 mEq/L (3.5-4.5)
[2017-08-09 04:12] LABS: Basophils % 0.3 %; Eosinophils % 0.1 %; Hemoglobin 12.9 g/dL (12.9-16.9); Immature Granulocytes % 0.4 % (0-4); Lymphocytes # 2.1 K/mcL (0.6-4.6); Lymphocytes % 29.2 %; Mean Corpuscular HGB Conc 35.8 g/dL (31.6-35.5); Mean Corpuscular Hemoglobin 30.6 pg (28.0-33.3); Mean Corpuscular Volume 85.3 fL (83.0-100.0); Mean Platelet Volume 9.3 fL (9.4-12.4); Monocytes # 0.8 K/mcL (0.0-1.3); Monocytes % 10.5 %; Neutrophils # 4.3 K/mcL (1.6-8.9); Platelet Count 210 K/mcL (140-400); Red Blood Count 4.22 M/mcL (4.19-5.50); Red Cell Distribution Width 13.1 % (11.5-14.5); Segmented Neutrophils % 59.5 %
[2017-08-09] MEDS: *HR* LORazepam 2 MG/ML VIAL IVP PRN (04:13)
[2017-08-09 04:18] LABS: BUN/Creatinine Ratio 10 (6-26); Blood Urea Nitrogen 9 mg/dL (8-26); Calcium 9.2 mg/dL (8.6-10.8); Carbon Dioxide 27 mEq/L (19-29); Chloride 96 mEq/L (98-109); Glucose 90 mg/dL (70-99); Osmolality,Calculated 282 (280-300); Potassium 3.3 mEq/L (3.5-4.5); Sodium 137 mEq/L (136-145); eGFR For African Americans > 60 (> 60); eGFR For Non-African Americans > 60 (> 60)
[2017-08-09 04:19] LABS: Albumin 3.2 g/dL (3.5-5.0); Bilirubin,Direct 1.3 mg/dL (0.0-0.5); Bilirubin,Indirect 0.8 mg/dL (0.0-1.2); Bilirubin,Total 2.1 mg/dL (0.2-1.2); Globulin 3.1 g/dL (2.4-3.5); Total Protein 6.3 g/dL (6.0-8.3)
[2017-08-09] MEDS: Magnesium Sulfate 2 GM in D5% in Water 100 ML IVPB PRN (05:42)
--- NOTE | 2017-08-09 08:37 | Electrocardiograph Report ---
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
[2017-08-09] MEDS: Lactulose Oral Soln 20 GM/30 ML UDC PO SCH (09:48)
[2017-08-09] MEDS: Furosemide 20 MG/2 ML VIAL IVP SCH (09:49)
[2017-08-09] MEDS: Thiamine (B-1) 100 MG TABLET PO SCH (09:49)
[2017-08-09] MEDS: Folic Acid 1 MG TABLET PO SCH (09:49)
[2017-08-09] MEDS: Metoprolol XL (24 HR) Succ 25 MG TAB.ER.24H PO SCH (09:49)
[2017-08-09] MEDS: Pantoprazole 40 MG VIAL IVP SCH (09:49)
--- NOTE | 2017-08-09 09:57 | Electrocardiograph Report ---
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
[2017-08-09 10:11] LABS: Hepatitis A Antibody IgM Nonreactive (Nonreactive); Hepatitis B Core IgM Nonreactive (Nonreactive); Hepatitis B Surface Antigen Nonreactive (Nonreactive); Hepatitis C Virus Antibody Nonreactive (Nonreactive)
--- NOTE | 2017-08-09 10:11 | Cardiology Progress Note ---
Date of Encounter: 08/09/17 Time of Encounter: 10:09 Assessment and Plan (1) Acute CHF (congestive heart failure) Current Visit: Yes Status: Acute Acute systolc left and right sided CHF. TTE shows EF 25%-30%, Global systolic dysfunction with regional variations. RV size normal with severely reduced function. Mild aortic regurgitation, moderate mitral regurgitation, mild pulmonic, and tricuspid regurgitation. Mild PHTN. No previous reports to compare. Initil BNP 1772. Appears euvolemic today. On RA laying flat. Convert to oral lasix. Currently net negative 2506 ml. Increase toprol as tolerated for HR. Will consider adding Robin-inhibitor if b/p allows. Low sodium diet. Daily weights. Not a candidate for ischemic evaluation at this time as he is going through acute ETOH withdrawl and INR elevated. Consider LHC once hepatic encephalopathy resolved and INR improves. Qualifiers: Congestive heart failure type: systolic Qualified Code(s): I50.21 - Acute systolic (congestive) heart failure (2) Atrial flutter Current Visit: Yes Status: Acute Atrial flutter with RVR. Likely secondary to ETOH abuse. Continue beta-brennon. Increase as tolerated. HR 120's still. INR 2.0 on admission while not on anticoagulation. INR 1.9 two days ago. Recheck INR. Not a good candidate for AC with elevated INR and ETOH abuse and concern for compliance. Qualifiers: Atrial flutter type: unspecified Qualified Code(s): I48.92 - Unspecified atrial flutter (3) History of alcoholism Current Visit: Yes Status: Acute ETOH cessation. On withdrwl protocal. Currently with hepatic encephalopathy. Followed by primary team. Discussion w patient/family: The assessment and plan as outlined above was discussed with the patient and/or family members who expressed understanding and agreement. All questions were answered. Thank you for involving us in the care of your patient. Please call with any questions. Subjective Principal diagnosis: Acute systolic CHF Interval history: Mr. Vinson continues to be confused. Mumbles at times. Unable to follow commands. More alert today during my exam. 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 ) Abdomen: Soft, Non-Tender Skin: No rashes noted on visualized skin Musculoskeletal: No Chest Wall Tenderness Extremities: No Clubbing, No Cyanosis, No Edema, Normal Pulses Results 08/09/17 03:46 08/09/17 03:46 Lab Results 08/09/17 08/09/17 08/09/17 01:02 03:46 03:46 WBC 7.3 Hgb 12.9 D Hct 36.0 L Plt Count 210 Sodium Potassium 3.6 Chloride Carbon Dioxide BUN Creatinine Glucose Calcium Magnesium 1.9 Total Bilirubin 2.1 H AST 167 H ALT 325 H Alkaline Phosphatase 165 H 08/09/17 03:46 WBC Hgb Hct Plt Count Sodium 137 Potassium 3.3 L Chloride 96 L Carbon Dioxide 27 BUN 9 Creatinine 0.92 Glucose 90 Calcium 9.2 Magnesium Total Bilirubin AST ALT Alkaline Phosphatase - Imaging and Cardiology Echo: report reviewed - EKG Interpretation EKG results cardiology: personally reviewed Consult Discharge Plan - Plan Referrals: Jody Whitley, WILBER [Primary Care Provider] -
[2017-08-09] MEDS ORDERED: Metoprolol XL (24 HR) Succ 25 MG TAB.ER.24H PO ONE (10:15)
[2017-08-09] MEDS ORDERED: Furosemide 20 MG TABLET PO PRN (10:18)
[2017-08-09 11:22] LABS: INR 1.5; Prothrombin Time 16.4 Seconds (9.4-12.1)
[2017-08-09] MEDS ORDERED: *HR* LORazepam 2 MG/ML VIAL IVP PRN (11:28)
--- NOTE | 2017-08-09 14:25 | Internal Med Progress Note ---
<Tori Klein H - Last Filed: 08/09/17 14:59> Date of Encounter: 08/09/17 Time of Encounter: 09:00 - Assessment and plan (1) Acute CHF (congestive heart failure) Current Visit: Yes Status: Acute Assessment and plan: Ejection fraction is 25-30%. Continue IV Lasix. Strict I's and O's and daily weights. Cardiology following. Patient appears euvolemic. Patient converted to PO lasix. They have increased toprol to 50mg to see if tolerated as means to lower HR. Will continue to monitor their recommendations. Qualifiers: Congestive heart failure type: systolic Qualified Code(s): I50.21 - Acute systolic (congestive) heart failure (2) Hepatic encephalopathy Current Visit: Yes Status: Acute Assessment and plan: Could be secondary to alcohol and hepatitis versus viral hepatitis and liver cirrhosis. LFTs are trending down consistent with alcohol-induced transaminitis. Repeart ammonia level today was normal at 19. Aspiration precautions. Tylenol level is undetectable. Will also check an ABG to make sure CO2 narcosis is not contributing to patient' s AMS and somnolence. (3) History of alcoholism Current Visit: Yes Status: Acute Assessment and plan: Continue CIWA protocol. Concerned patient's dose of ativan contributing to his somnolence. We decreased this from 4mg to 2mg. (4) Atrial flutter Current Visit: Yes Status: Acute Assessment and plan: Patient with regular heart beat in the low 120's consistent with atrial flutter with RVR and 2:1 conduction. Cardiology has increased Toprol from 25mg to 50mg to lower patient's HR. No anticoagulation secondary to patient's elevated INR and alcoholism. Qualifiers: Atrial flutter type: unspecified Qualified Code(s): I48.92 - Unspecified atrial flutter (5) DVT prophylaxis Current Visit: Yes Status: Acute Assessment and plan: SCDs. (6) Tobacco use Current Visit: Yes Status: Acute Assessment and plan: Nicotine replacement therapy. (7) Hyponatremia Current Visit: Yes Status: Acute Assessment and plan: Patient's sodium corrected to 137 with fluid restriction of 1400ml daily. Continue to monitor sodium levels daily. - Subjective Interval history: 56 yo male admitted for evaluation of AMS, atrial flutter, and anasarca. Patient is confused and somnolent. He mumbles, however, he is unable to follow commands. Patient having difficulty keeping his eyes open. Denies any abdominal pain or difficulties going to the bathroom. - Constitutional Vitals: Temp Pulse Resp BP Pulse Ox 97.8 F 119 20 132/100 100 08/09/17 11:57 08/09/17 12:17 08/09/17 11:57 08/09/17 11:57 08/09/17 11:57 General appearance: Present: A&O X 2 (Patient somnolent.), pleasant - Head Head exam: Present: atraumatic, normal inspection - Respiratory Respiratory exam: Present: CTAB. Absent: rales, rhonchi, wheezes - Cardiovascular Cardiovascular exam: Present: RRR. Absent: diastolic murmur, systolic murmur - GI/Abdominal GI/Abdominal exam: Present: soft. Absent: guarding, mass, pulsatile mass, tenderness - Expanded GI/Abdominal Exam GI/Abdominal exam expanded: Absent: ascites - Extremities Exam Extremities exam: Present: warm. Absent: calf tenderness, cyanotic, pedal edema Internal Medicine: Result - Labs CBC & Chem 7: 08/09/17 03:46 08/09/17 03:46 Labs: Short CBC 08/09/17 Range/Units 03:46 WBC 7.3 (4.3-11.1) K/mcL Hgb 12.9 D (12.9-16.9) g/dL Hct 36.0 L (37.5-50.1) % Plt Count 210 (140-400) K/mcL Neutrophils # 4.3 (1.6-8.9) K/mcL BMP 08/09/17 08/09/17 01:02 03:46 Sodium 137 Potassium 3.6 3.3 L Chloride 96 L Carbon Dioxide 27 BUN 9 Creatinine 0.92 Glucose 90 Calcium 9.2 Liver Function 08/09/17 Range/Units 03:46 Total Bilirubin 2.1 H (0.2-1.2) mg/dL Direct Bilirubin 1.3 H (0.0-0.5) mg/dL AST 167 H (5-34) Units/L ALT 325 H (0-55) Units/L Alkaline Phosphatase 165 H (38-126) Units/L Albumin 3.2 L (3.5-5.0) g/dL - ABG Interpretation ABG results: PT/INR, D-dimer PT 16.4 Seconds (9.4-12.1) H 08/09/17 10:47 - Impressions Impressions Echocardiogram 08/06/17 15:19 Impressions: There is severe LV systolic dysfunction with regional variations, EF 25-30%. RV is normal in size. Function is severely reduced. Bi-atrial enlargement. Mild aortic regurgitation. Moderate mitral regurgitation. Moderate tricuspid regurgitation. Mild pulmonic regurgitation. Mild pulmonary hypertension. The IVC is dilated. Left Ventricular Wall Motion: Rest Echo Findings The apex, apical inferior, mid inferior, basal inferior, apical anterior, mid anterior, basal anterior, apical septal, mid inferior septal, basal inferior septal, apical lateral, mid anterior lateral, basal anterior lateral, mid anterior septal, mid inferior lateral and basal anterior septal mace were hypokinetic. All other wall segments showed normal motion. Findings: Study Quality * Technically adequate exam. ECG Findings * Tachycardia, possibly atrial flutter HR 110's. Aorta * Normally sized aortic root. Aortic Valve * Mild aortic regurgitation. * Trileaflet aortic valve. * Normal aortic valve structure. * No aortic stenosis. Mitral Valve * Normal mitral valve structure. * No mitral stenosis. * Moderate mitral regurgitation. Tricuspid Valve * Normal tricuspid valve structure. * Moderate tricuspid regurgitation. * Estimated RA pressure is 15 mmHg. * Estimated RVSP is 44 mmHg. * Mild pulmonary hypertension. Pulmonic Valve * Pulmonic valve is not well visualized. * No pulmonic stenosis. * Mild pulmonic regurgitation. Pulmonary Artery * Pulmonary artery not well visualized. Right Ventricle * Normal size. Severely reduced function. Left Atrium * Moderate-severely dilated left atrium. Right Atrium * Severely dilated right atrium. Pericardium * There is no pericardial effusion present. Interatrial Septum * No evidence of PFO by color Doppler. IVC * The IVC is dilated. Left Ventricle * LVEF 25-30%. * There is no LV thrombus. * Normal LV size. * Indeterminate LV diastolic function. Consult Discharge Plan - Plan Referrals: Jody Whitley, [facility] [Primary Care Provider] - <Britton Yip - Last Filed: 08/09/17 19:08> Date of Encounter: 08/09/17 - Assessment and plan (1) Hepatic encephalopathy Current Visit: Yes Status: Acute (2) History of alcoholism Current Visit: Yes Status: Acute (3) Atrial flutter Current Visit: Yes Status: Acute Qualifiers: Atrial flutter type: unspecified Qualified Code(s): I48.92 - Unspecified atrial flutter (4) DVT prophylaxis Current Visit: Yes Status: Acute (5) Tobacco use Current Visit: Yes Status: Acute (6) Acute CHF (congestive heart failure) Current Visit: Yes Status: Acute Qualifiers: Congestive heart failure type: systolic Qualified Code(s): I50.21 - Acute systolic (congestive) heart failure (7) Hyponatremia Current Visit: Yes Status: Acute - Constitutional Vitals: Temp Pulse Resp BP Pulse Ox 98.6 F 122 18 109/94 98 08/09/17 16:31 08/09/17 16:33 08/09/17 16:31 08/09/17 16:31 08/09/17 16:33 Internal Medicine: Result - Labs CBC & Chem 7: 08/09/17 03:46 08/09/17 03:46 Labs: Short CBC 08/09/17 Range/Units 03:46 WBC 7.3 (4.3-11.1) K/mcL Hgb 12.9 D (12.9-16.9) g/dL Hct 36.0 L (37.5-50.1) % Plt Count 210 (140-400) K/mcL Neutrophils # 4.3 (1.6-8.9) K/mcL BMP 08/09/17 08/09/17 01:02 03:46 Sodium 137 Potassium 3.6 3.3 L Chloride 96 L Carbon Dioxide 27 BUN 9 Creatinine 0.92 Glucose 90 Calcium 9.2 Liver Function 08/09/17 Range/Units 03:46 Total Bilirubin 2.1 H (0.2-1.2) mg/dL Direct Bilirubin 1.3 H (0.0-0.5) mg/dL AST 167 H (5-34) Units/L ALT 325 H (0-55) Units/L Alkaline Phosphatase 165 H (38-126) Units/L Albumin 3.2 L (3.5-5.0) g/dL - ABG Interpretation ABG results: PT/INR, D-dimer PT 16.4 Seconds (9.4-12.1) H 08/09/17 10:47 - Impressions Impressions Echocardiogram 09/22/17 15:19 Impressions: There is severe LV systolic dysfunction with regional variations, EF 25-30%. RV is normal in size. Function is severely reduced. Bi-atrial enlargement. Mild aortic regurgitation. Moderate mitral regurgitation. Moderate tricuspid regurgitation. Mild pulmonic regurgitation. Mild pulmonary hypertension. The IVC is dilated. Left Ventricular Wall Motion: Rest Echo Findings The apex, apical inferior, mid inferior, basal inferior, apical anterior, mid anterior, basal anterior, apical septal, mid inferior septal, basal inferior septal, apical lateral, mid anterior lateral, basal anterior lateral, mid anterior septal, mid inferior lateral and basal anterior septal mace were hypokinetic. All other wall segments showed normal motion. Findings: Study Quality * Technically adequate exam. ECG Findings * Tachycardia, possibly atrial flutter HR 110's. Aorta * Normally sized aortic root. Aortic Valve * Mild aortic regurgitation. * Trileaflet aortic valve. * Normal aortic valve structure. * No aortic stenosis. Mitral Valve * Normal mitral valve structure. * No mitral stenosis. * Moderate mitral regurgitation. Tricuspid Valve * Normal tricuspid valve structure. * Moderate tricuspid regurgitation. * Estimated RA pressure is 15 mmHg. * Estimated RVSP is 44 mmHg. * Mild pulmonary hypertension. Pulmonic Valve * Pulmonic valve is not well visualized. * No pulmonic stenosis. * Mild pulmonic regurgitation. Pulmonary Artery * Pulmonary artery not well visualized. Right Ventricle * Normal size. Severely reduced function. Left Atrium * Moderate-severely dilated left atrium. Right Atrium * Severely dilated right atrium. Pericardium * There is no pericardial effusion present. Interatrial Septum * No evidence of PFO by color Doppler. IVC * The IVC is dilated. Left Ventricle * LVEF 25-30%. * There is no LV thrombus. * Normal LV size. * Indeterminate LV diastolic function. - Attending Attestation I examined this patient and my medical decision-making was reviewed with the Resident Physician, Dr. Klein. I agree with the documented findings, disposition and treatment plan as described except to the extent set forth below. My findings are summarized below: Patient's mental status is slightly improved. He is awake alert oriented 1. He answers some questions appropriately. Heart is regular. Lungs are clear. Abdomen is soft and nontender. Plan: Continue cardiac monitoring. Increase metoprolol. Follow-up with cardiology. Decrease Ativan to highest dose of 2 mg to avoid any more sedation. Continue with alcohol withdrawal protocol.
[2017-08-10] MEDS: Folic Acid 1 MG TABLET PO SCH (08:10)
[2017-08-10] MEDS: Thiamine (B-1) 100 MG TABLET PO SCH (08:10)
[2017-08-10 08:45] LABS: Basophils % 0.1 %; Eosinophils % 0.4 %; Hematocrit 35.3 % (37.5-50.1); Hemoglobin 12.7 g/dL (12.9-16.9); Immature Granulocytes % 0.3 % (0-4); Lymphocytes # 2.3 K/mcL (0.6-4.6); Lymphocytes % 30.6 %; Mean Corpuscular Hemoglobin 30.9 pg (28.0-33.3); Mean Corpuscular Volume 85.9 fL (83.0-100.0); Mean Platelet Volume 9.3 fL (9.4-12.4); Monocytes # 0.8 K/mcL (0.0-1.3); Monocytes % 10.7 %; Neutrophils # 4.4 K/mcL (1.6-8.9); Platelet Count 224 K/mcL (140-400); Red Blood Count 4.11 M/mcL (4.19-5.50); Red Cell Distribution Width 13.2 % (11.5-14.5); Segmented Neutrophils % 57.9 %
[2017-08-10] MEDS ORDERED: Metoprolol XL (24 HR) Succ 25 MG TAB.ER.24H PO SCH (09:00)
[2017-08-10 09:02] LABS: Alanine Aminotransferase 228 Units/L (0-55); Albumin 2.9 g/dL (3.5-5.0); Albumin/Globulin Ratio 0.9 (1.1-2.2); Alkaline Phosphatase 155 Units/L (38-126); Aspartate Amino Transferase 77 Units/L (5-34); BUN/Creatinine Ratio 11 (6-26); Bilirubin,Total 1.9 mg/dL (0.2-1.2); Blood Urea Nitrogen 10 mg/dL (8-26); Calcium 9.1 mg/dL (8.6-10.8); Carbon Dioxide 26 mEq/L (19-29); Chloride 97 mEq/L (98-109); Globulin 3.1 g/dL (2.4-3.5); Glucose 97 mg/dL (70-99); Magnesium 1.8 mg/dL (1.6-2.6); Osmolality,Calculated 277 (280-300); Phosphorous 3.7 mg/dL (2.3-4.7); Potassium 3.7 mEq/L (3.5-4.5); Sodium 134 mEq/L (136-145); eGFR For African Americans > 60 (> 60); eGFR For Non-African Americans > 60 (> 60)
--- NOTE | 2017-08-10 09:46 | Internal Med Progress Note ---
<Tori Klein - Last Filed: 08/10/17 13:35> Date of Encounter: 08/10/17 Time of Encounter: 09:34 - Assessment and plan (1) Acute CHF (congestive heart failure) Current Visit: Yes Status: Acute Assessment and plan: Cardiology to start a cardizem drip today to treat patients prolonged tachycardia. While amiodarone is the preferred agent due to patient's low ejection fraction of 25-30%, patient has underlying liver disease which prevents the use of the medication. Patient did not respond favorably to beta brennon in terms of lowering heart rate. His blood pressures will not allow a further increase in Toprol. Causes of CHF include prolonged tachycardia inducing cardiomyopathy as well as alcoholic induced dilated cardiomyopathy. This tachycardia could be contributing to patient's congestive heart failure. Further, cardiology is still considering [facility] to rule out any underlying occlusions that could be contributing to patient's CHF. Qualifiers: Congestive heart failure type: systolic Qualified Code(s): I50.21 - Acute systolic (congestive) heart failure (2) Hepatic encephalopathy Current Visit: Yes Status: Acute Assessment and plan: Could be secondary to alcohol and hepatitis versus viral hepatitis and liver cirrhosis. LFTs continually trending down consistent with alcohol-induced transaminitis. Repeart ammonia level yesterday was normal at 19. Tylenol level is undetectable. Patient is awake and alert. (3) History of alcoholism Current Visit: Yes Status: Acute Assessment and plan: Continue CIWA protocol. Concerned patient's dose of ativan contributing to his somnolence. We decreased this from 4mg to 2mg yesterday, and patient has awakened significantly. He is shocked that he has been in the hospital for so long. I spent 20 minutes with the patient counseling him on resources for drug and alcohol treatment including attendance at . Patient seemed reserved yet interested. He expressed understanding that alcohol was negatively affecting his health. (4) Atrial flutter Current Visit: Yes Status: Acute Assessment and plan: Patient with regular heart beat in the low 120's consistent with atrial flutter with RVR and 2:1 conduction. Toprol did not provide adequate heart rate control. See above for cardiology's management of patient's tachycardia. No anticoagulation secondary to patient's elevated INR and alcoholism. Qualifiers: Atrial flutter type: unspecified Qualified Code(s): I48.92 - Unspecified atrial flutter (5) DVT prophylaxis Current Visit: Yes Status: Acute Assessment and plan: SCDs. (6) Tobacco use Current Visit: Yes Status: Acute Assessment and plan: Nicotine replacement therapy. (7) Hyponatremia Current Visit: Yes Status: Acute Assessment and plan: Patient's sodium corrected to 137 with fluid restriction of 1400ml daily. Continue to monitor sodium levels daily. - Subjective Interval history: 56 yo male admitted for evaluation of AMS, hyponatremia, atrial flutter with RVR , anasarca, and alcohol withdrawal. Patient is alert. He can't believe he has been in the hospital for 4 days. He is in pain or distress, however, he states he feels tired. He denies chest pain, nausea, or diaphoresis; however, he states he feels chest palpitations and occasional shortness of breath. He noticed that before being admitted he was quick to get short of breath including moving his grass. - Constitutional Vitals: Temp Pulse Resp BP Pulse Ox 98.1 F 120 17 102/79 96 08/10/17 05:02 08/10/17 08:16 08/10/17 05:02 08/10/17 05:02 08/10/17 05:02 General appearance: Present: A&O X 3, pleasant - Head Head exam: Present: atraumatic, normal inspection, normocephalic - Respiratory Respiratory exam: Present: CTAB. Absent: rhonchi, stridor, wheezes - Cardiovascular Cardiovascular exam: Present: tachycardia (regular). Absent: distant heart sounds, systolic murmur - GI/Abdominal GI/Abdominal exam: Present: hepatomegaly, normal bowel sounds, soft. Absent: tenderness - Extremities Exam Extremities exam: Present: normal capillary refill, radial pulses palpable and symmetrical. Absent: calf tenderness, pedal edema, tenderness - Psychiatric Psychiatric exam: Present: normal affect, normal mood - Skin Skin exam: Present: dry, warm Internal Medicine: Result - Labs CBC & Chem 7: 08/10/17 08:19 08/10/17 08:19 Labs: Short CBC 08/10/17 Range/Units 08:19 WBC 7.6 (4.3-11.1) K/mcL Hgb 12.7 L (12.9-16.9) g/dL Hct 35.3 L (37.5-50.1) % Plt Count 224 (140-400) K/mcL Neutrophils # 4.4 (1.6-8.9) K/mcL BMP 08/10/17 08:19 Sodium 134 L Potassium 3.7 Chloride 97 L Carbon Dioxide 26 BUN 10 Creatinine 0.88 Glucose 97 Calcium 9.1 Liver Function 08/10/17 Range/Units 08:19 Total Bilirubin 1.9 H (0.2-1.2) mg/dL AST 77 H (5-34) Units/L ALT 228 H (0-55) Units/L Alkaline Phosphatase 155 H (38-126) Units/L Albumin 2.9 L (3.5-5.0) g/dL - ABG Interpretation ABG results: PT/INR, D-dimer PT 16.4 Seconds (9.4-12.1) H 08/09/17 10:47 Consult Discharge Plan - Plan Referrals: Jody Whitley CNP [Primary Care Provider] - 08/19/17 2:00 pm <Britton Yip - Last Filed: 08/11/17 07:52> Date of Encounter: 08/10/17 - Assessment and plan (1) Hepatic encephalopathy Current Visit: Yes Status: Acute (2) History of alcoholism Current Visit: Yes Status: Acute (3) Atrial flutter Current Visit: Yes Status: Acute Qualifiers: Atrial flutter type: unspecified Qualified Code(s): I48.92 - Unspecified atrial flutter (4) DVT prophylaxis Current Visit: Yes Status: Acute (5) Tobacco use Current Visit: Yes Status: Acute (6) Acute CHF (congestive heart failure) Current Visit: Yes Status: Acute Qualifiers: Congestive heart failure type: systolic Qualified Code(s): I50.21 - Acute systolic (congestive) heart failure (7) Hyponatremia Current Visit: Yes Status: Acute - Constitutional Vitals: Temp Pulse Resp BP Pulse Ox 98.0 F 144 20 88/74 99 08/11/17 07:19 08/11/17 07:19 08/11/17 07:19 08/11/17 07:19 08/11/17 07:19 Internal Medicine: Result - Labs CBC & Chem 7: 08/11/17 04:50 08/11/17 05:27 Labs: Short CBC 08/10/17 08/11/17 Range/Units 08:19 04:50 WBC 7.6 8.5 (4.3-11.1) K/mcL Hgb 12.7 L 13.2 (12.9-16.9) g/dL Hct 35.3 L 37.1 L (37.5-50.1) % Plt Count 224 227 (140-400) K/mcL Neutrophils # 4.4 4.8 (1.6-8.9) K/mcL BMP 08/10/17 08/11/17 08:19 05:27 Sodium 134 L 134 L Potassium 3.7 4.5 Chloride 97 L 98 Carbon Dioxide 26 21 BUN 10 20 D Creatinine 0.88 2.29 H D Glucose 97 131 H Calcium 9.1 9.1 Liver Function 08/10/17 Range/Units 08:19 Total Bilirubin 1.9 H (0.2-1.2) mg/dL AST 77 H (5-34) Units/L ALT 228 H (0-55) Units/L Alkaline Phosphatase 155 H (38-126) Units/L Albumin 2.9 L (3.5-5.0) g/dL - ABG Interpretation ABG results: PT/INR, D-dimer PT 16.4 Seconds (9.4-12.1) H 08/09/17 10:47 - Attending Attestation I examined this patient and my medical decision-making was reviewed with the Resident Physician, Dr. Klein. I agree with the documented findings, disposition and treatment plan as described except to the extent set forth below. I have independently obtained history and examined the patient and my findings are summarized below: Patient is more alert this morning. He denies chest pain, reports episodes of shortness of breath and anxiety. On exam he is in no acute distress awake alert oriented 2. Heart is tachycardic and regular with no murmurs. Plan: Follow-up with cardiology. Start Cardizem drip per cardiology. Monitor INR. He is still not in good candidate for anticoagulation due to elevated INR , liver dysfunction, and high risk for falls and intracranial bleed.
[2017-08-10] MEDS ORDERED: Magnesium Sulfate 2 GM in D5% in Water 100 ML IVPB PRN (10:24)
[2017-08-10] MEDS: Magnesium Sulfate 2 GM in D5% in Water 100 ML IVPB PRN (11:08)
--- NOTE | 2017-08-10 12:20 | Cardiology Progress Note ---
Date of Encounter: 08/10/17 Time of Encounter: 12:16 Assessment and Plan (1) Acute CHF (congestive heart failure) Current Visit: Yes Status: Acute Acute systolc left and right sided CHF. TTE shows EF 25%-30%, Global systolic dysfunction with regional variations. RV size normal with severely reduced function. Mild aortic regurgitation, moderate mitral regurgitation, mild pulmonic, and tricuspid regurgitation. Mild PHTN. No previous reports to compare. Initil BNP 1772. Appears euvolemic today. On RA laying flat. On oral lasix. Currently net negative 1852 ml. Continue toprol. Will consider adding Robin-inhibitor if b/p allows. Low sodium diet. Daily weights. Patient is now more alert. Hospital course reviewed with patient. CHF education given. I discussed [facility] indication, risk, and benefit. He states that he does not want any procedures. He is a poor candidate due to ETOH abuse and concern for medical compliance. Will continue to discuss. Qualifiers: Congestive heart failure type: systolic Qualified Code(s): I50.21 - Acute systolic (congestive) heart failure (2) Atrial flutter Current Visit: Yes Status: Acute Atrial flutter with RVR. Likely secondary to ETOH abuse. Continue beta-brennon. Will add cardizem gtt today. Unable to add amiodarone due to elevated liver enzymes. HR 120's still. Will repeat EKG. Appears t be atrial tachycardia on telemetry. INR 2.0 on admission while not on anticoagulation. INR 1.9 two days ago. Now INR 1.5. Not a good candidate for AC with elevated INR on admission and ETOH abuse and concern for compliance. Qualifiers: Atrial flutter type: unspecified Qualified Code(s): I48.92 - Unspecified atrial flutter (3) History of alcoholism Current Visit: Yes Status: Acute ETOH cessation. On withdrwl protocal. Currently with hepatic encephalopathy. Followed by primary team. Discussion w patient/family: The assessment and plan as outlined above was discussed with the patient and/or family members who expressed understanding and agreement. All questions were answered. Thank you for involving us in the care of your patient. Please call with any questions. Subjective Principal diagnosis: Acute systolic CHF Interval history: Mr. Vinson is alert and oriented to self and time. Re-oriented to place. Significant improvement in mental status. Hospital course reviewed with patient. Objective Vital Signs, Last 4 Hours Temp Pulse Resp BP Pulse Ox 08/10/17 11:21 97.8 F 121 18 102/78 96 General: Conversant, No Apparent Distress HEENT: Atraumatic, Normocephaly, Mucus Membranes Moist Neck: No JVD, Normal carotid pulses Cardiac: Reg Rate and Rhythm, Normal S1 and S2, No Murmur, Other (atrial tachycardia on telemetry) Lungs: Normal Breath Sounds, No Wheeze, Rales, Rhonchi Neuro: Alert and responsive, No focal deficits noted Abdomen: Soft, Non-Tender Skin: No rashes noted on visualized skin Musculoskeletal: No Chest Wall Tenderness Extremities: No Clubbing, No Cyanosis, No Edema, Normal Pulses Results 08/10/17 08:19 08/10/17 08:19 Lab Results 08/09/17 08/10/17 08/10/17 12:19 08:19 08:19 WBC 7.6 Hgb 12.7 L Hct 35.3 L Plt Count 224 Sodium 134 L Potassium 3.7 Chloride 97 L Carbon Dioxide 26 BUN 10 Creatinine 0.88 Glucose 97 Calcium 9.1 Magnesium 2.1 1.8 Total Bilirubin 1.9 H AST 77 H ALT 228 H Alkaline Phosphatase 155 H Consult Discharge Plan - Plan Referrals: Jody Whitley CNP [Primary Care Provider] - 08/19/17 2:00 pm
[2017-08-10] MEDS ORDERED: 0.9 % Sodium Chloride 500 ML IVC ONE (14:56)
[2017-08-10] MEDS ORDERED: 0.9 % Sodium Chloride 1,000 ML ONE (15:13)
[2017-08-10] MEDS: *HR* Heparin 5,000 UNIT/ML VIAL SQ SCH (15:33)
[2017-08-11] MEDS: *HR* Heparin 5,000 UNIT/ML VIAL SQ SCH ×3 (00:34→16:49)
[2017-08-11 05:05] LABS: Basophils % 0.2 %; Eosinophils % 0.1 %; Hematocrit 37.1 % (37.5-50.1); Hemoglobin 13.2 g/dL (12.9-16.9); Immature Granulocytes % 0.4 % (0-4); Lymphocytes # 2.9 K/mcL (0.6-4.6); Lymphocytes % 34.6 %; Mean Corpuscular HGB Conc 35.6 g/dL (31.6-35.5); Mean Corpuscular Hemoglobin 30.8 pg (28.0-33.3); Mean Corpuscular Volume 86.7 fL (83.0-100.0); Mean Platelet Volume 9.7 fL (9.4-12.4); Monocytes # 0.7 K/mcL (0.0-1.3); Monocytes % 7.9 %; Neutrophils # 4.8 K/mcL (1.6-8.9); Nucleated Red Blood Cells 0.5 /100 WBC (0); Platelet Count 227 K/mcL (140-400); Red Blood Count 4.28 M/mcL (4.19-5.50); Red Cell Distribution Width 13.2 % (11.5-14.5); Segmented Neutrophils % 56.8 %
[2017-08-11 05:42] LABS: Calcium 9.1 mg/dL (8.6-10.8); Potassium 4.5 mEq/L (3.5-4.5)
[2017-08-11] MEDS: Folic Acid 1 MG TABLET PO SCH (08:42)
[2017-08-11] MEDS: Thiamine (B-1) 100 MG TABLET PO SCH (08:42)
[2017-08-11] MEDS: Nicotine 14 MG PATCH.TD24 TD SCH (08:43)
[2017-08-11] MEDS ORDERED: 0.9 % Sodium Chloride 1,000 ML IVC SCH (09:00)
[2017-08-11] MEDS ORDERED: 0.9 % Sodium Chloride 500 ML IVC ONE (09:19)
[2017-08-11 09:26] LABS: Magnesium 2.4 mg/dL (1.6-2.6)
[2017-08-11] MEDS: Metoprolol XL (24 HR) Succ 25 MG TAB.ER.24H PO SCH (10:16)
--- NOTE | 2017-08-11 11:09 | Cardiology Progress Note ---
Date of Encounter: 08/11/17 Time of Encounter: 11:07 Assessment and Plan (1) Acute CHF (congestive heart failure) Current Visit: Yes Status: Acute Acute systolc left and right sided CHF. TTE shows EF 25%-30%, Global systolic dysfunction with regional variations. RV size normal with severely reduced function. Mild aortic regurgitation, moderate mitral regurgitation, mild pulmonic, and tricuspid regurgitation. Mild PHTN. No previous reports to compare. Initil BNP 1772. Appears dry on exam today. CXR repeated for SOB and no CHF seen. On 2L NC. VQ scan pending. Agree with IV fluid. Hold antihypertensives. Currently net negative 113 ml. Restart low dose beat-brennon when b/p improves. Low sodium diet. Daily weights. Patient is now more alert. Hospital course reviewed with patient. CHF education given. I discussed [facility] indication, risk, and benefit. He states that he does not want any procedures. Now with AMIE likely secondary to hypotension and not a good candidate. Will re-consider once stable. Qualifiers: Congestive heart failure type: systolic Qualified Code(s): I50.21 - Acute systolic (congestive) heart failure (2) Atrial flutter Current Visit: Yes Status: Acute Atrial flutter with RVR. Likely secondary to ETOH abuse. HR difficult to control on metoprolol. Did not tolerate cardizem gtt d/t hypotension. Unable to add amiodarone due to elevated liver enzymes. HR 120's still. Discuss[address] with Dr. Quintanilla. Patient likely still hypovolemic after diuresis eraly during his stay. Agree with IV fluid. HR likely to improve. Initially not a good candidate for AC with elevated INR on admission at 2.0 and ETOH abuse and concern for compliance. INR decrease to 1.5. PLT now normal. Patient states he is ready to quit drinking. WIll check INR again today. If normal will start heparin gtt. If HR does not improve we will consider NICHOLE with DCCV. CHADS VASC =1 for CHF. If he receives DCCV will need anticoagulation for one month. Qualifiers: Atrial flutter type: unspecified Qualified Code(s): I48.92 - Unspecified atrial flutter (3) History of alcoholism Current Visit: Yes Status: Acute ETOH cessation. On withdrwl protocal. Hepatic encephalopathy resolved. He states he is ready to quit. Followed by primary team. (4) SOB (shortness of breath) Current Visit: Yes Status: Acute CXR shows no CHF. Appears dry on exam. VQ scan pending. Appreciate primary team input. Discussion w patient/family: The assessment and plan as outlined above was discussed with the patient and/or family members who expressed understanding and agreement. All questions were answered. Thank you for involving us in the care of your patient. Please call with any questions. Subjective Principal diagnosis: Acute systolic CHF Interval history: Mr. Vinson is alert and oriented today. C/o intermittent SOB. CXR and VQ scan ordered by hospitalist. Objective Vital Signs, Last 4 Hours Temp Pulse Resp BP Pulse Ox 08/11/17 11:02 97.6 F 114 16 87/61 94 08/11/17 10:20 116 104/80 08/11/17 08:40 114 108/91 95 08/11/17 08:00 117 95/80 08/11/17 07:30 115 102/80 08/11/17 07:20 114 88/74 99 08/11/17 07:19 98.0 F 144 20 88/74 99 General: Conversant, No Apparent Distress HEENT: Atraumatic, Normocephaly, Mucus Membranes Moist Neck: No JVD, Normal carotid pulses Cardiac: Reg Rate and Rhythm, Normal S1 and S2, No Murmur, Other (Regular, atrial flutter on telemetry.) Lungs: Normal Breath Sounds, No Wheeze, Rales, Rhonchi Neuro: Alert and responsive, No focal deficits noted Abdomen: Soft, Non-Tender Skin: No rashes noted on visualized skin Musculoskeletal: No Chest Wall Tenderness Extremities: No Clubbing, No Cyanosis, No Edema, Normal Pulses Results 08/11/17 04:50 08/11/17 05:27 Lab Results 08/11/17 08/11/17 04:50 05:27 WBC 8.5 Hgb 13.2 Hct 37.1 L Plt Count 227 Sodium 134 L Potassium 4.5 Chloride 98 Carbon Dioxide 21 BUN 20 D Creatinine 2.29 H D Glucose 131 H Calcium 9.1 Magnesium 2.4 - EKG Interpretation EKG results cardiology: personally reviewed (atrial flutter, HR 120, no acute ST changes) Consult Discharge Plan - Plan Referrals: Jody Whitley, [facility] [facility] [Primary Care Provider] - 08/19/17 2:00 pm
--- NOTE | 2017-08-11 11:24 | Internal Med Progress Note ---
<Tori Klein H - Last Filed: 08/11/17 17:03> Date of Encounter: 08/11/17 Time of Encounter: 09:00 - Assessment and plan (1) Acute CHF (congestive heart failure) Current Visit: Yes Status: Acute Assessment and plan: Patient's echocardiogram shows an ejection fraction of 25-30%. Patient is dry on exam today and his blood pressures have been teetering in the 80s systolic overnight. We ordered chest x-ray this morning which shows no congestive heart failure. We decided to proceed with a VQ scan as patient has been tachycardic and SOB despite multiple interventions. VQ shows no evidence of PE. We began IV fluids. We held the beta brennon this morning. We will restart when his blood pressure improves. Patient's blood pressure did drop overnight on the Cardizem drip which had to be decreased, and ultimately stopped today. Patient may need cardioversion with NICHOLE with DCCV. Cardizem drip was started yesterday to treat patients prolonged tachycardia. While amiodarone is the preferred agent due to patient's low ejection fraction of 25-30%, patient has underlying liver disease which prevents the use of the medication. Patient did not respond favorably to beta brennon in terms of lowering heart rate. His blood pressures will not allow a further increase in Toprol. Causes of CHF include prolonged tachycardia inducing cardiomyopathy as well as alcoholic induced dilated cardiomyopathy. This tachycardia could be contributing to patient's congestive heart failure. Further, cardiology is still considering [facility] to rule out any underlying occlusions that could be contributing to patient's CHF. Qualifiers: Congestive heart failure type: systolic Qualified Code(s): I50.21 - Acute systolic (congestive) heart failure (2) Atrial flutter Current Visit: Yes Status: Acute Assessment and plan: Patient's tachycardia is prolonged with regular heart beat in the low 120's consistent with atrial flutter with RVR and 2:1 conduction. Patient has been tachycardic for 4 days. He did not tolerate metoprolol or cardizem drip. We will make him NPO in preparation for potential cardioversion tomorrow. We have also ordered vitamin K due to patient's drinking history. Qualifiers: Atrial flutter type: unspecified Qualified Code(s): I48.92 - Unspecified atrial flutter (3) Hepatic encephalopathy Current Visit: Yes Status: Acute Assessment and plan: Patient is awake and alert. LFTs continually trending down consistent with alcohol-induced transaminitis. Ammonia levels have normalized. Tylenol level is undetectable. (4) History of alcoholism Current Visit: Yes Status: Acute Assessment and plan: Patient being treated according to [facility] protocol. He is awake and alert and resting comfortably. Patient committed to alcohol cessation. (5) DVT prophylaxis Current Visit: Yes Status: Acute Assessment and plan: SQ Heparin. (6) Tobacco use Current Visit: Yes Status: Acute Assessment and plan: Nicotine replacement therapy. (7) Hyponatremia Current Visit: Yes Status: Acute Assessment and plan: Patient's sodium corrected to 137 with fluid restriction of 1400ml daily. Continue to monitor sodium levels daily. - Subjective Interval history: 56 yo male admitted for evaluation of AMS, hyponatremia, atrial flutter with RVR , anasarca, and alcohol withdrawal. Patient is alert, yet he states he is very tired. He denies abdominal pain. He denies chest pain, nausea, or diaphoresis; however, he states he feels chest palpitations and occasional shortness of breath. He noticed that before being admitted he was quick to get short of breath including moving his grass. Today, he says he gets anxious when he lays down as he feels as though he can't breathe. - Constitutional Vitals: Temp Pulse Resp BP Pulse Ox 97.6 F 114 16 91/74 94 08/11/17 11:02 08/11/17 11:07 08/11/17 11:02 08/11/17 11:07 08/11/17 11:02 General appearance: Present: A&O X 3, pleasant - Head Head exam: Present: atraumatic, normal inspection, normocephalic - Respiratory Respiratory exam: Present: CTAB. Absent: rales, respiratory distress, stridor, wheezes - Cardiovascular Cardiovascular exam: Present: systolic murmur, tachycardia - GI/Abdominal GI/Abdominal exam: Present: soft. Absent: tenderness - Extremities Exam Extremities exam: Present: radial pulses palpable and symmetrical. Absent: calf tenderness, pedal edema, tenderness - Psychiatric Psychiatric exam: Present: normal affect, normal mood - Skin Skin exam: Present: dry, warm Internal Medicine: Result - Labs CBC & Chem 7: 08/11/17 04:50 08/11/17 14:55 Labs: Short CBC 08/11/17 Range/Units 04:50 WBC 8.5 (4.3-11.1) K/mcL Hgb 13.2 (12.9-16.9) g/dL Hct 37.1 L (37.5-50.1) % Plt Count 227 (140-400) K/mcL Neutrophils # 4.8 (1.6-8.9) K/mcL BMP 08/11/17 05:27 Sodium 134 L Potassium 4.5 Chloride 98 Carbon Dioxide 21 BUN 20 D Creatinine 2.29 H D Glucose 131 H Calcium 9.1 - ABG Interpretation ABG results: PT/INR, D-dimer PT 16.4 Seconds (9.4-12.1) H 08/09/17 10:47 - Impressions Impressions Chest X-Ray 08/11/17 08:55 IMPRESSION: Cardiomegaly with no evidence of CHF. Scarring versus atelectasis in the left lung base D/ / Cristi Lynn MD / Cristi Lynn MD Interpreting Provider: Cristi Lynn MD Consult Discharge Plan - Plan Referrals: Jody Whitley CNP [Primary Care Provider] - 08/19/17 2:00 pm <Britton Yip - Last Filed: 08/11/17 18:06> Date of Encounter: 08/11/17 - Assessment and plan (1) Hepatic encephalopathy Current Visit: Yes Status: Acute (2) History of alcoholism Current Visit: Yes Status: Acute (3) Atrial flutter Current Visit: Yes Status: Acute Qualifiers: Atrial flutter type: unspecified Qualified Code(s): I48.92 - Unspecified atrial flutter (4) DVT prophylaxis Current Visit: Yes Status: Acute (5) Tobacco use Current Visit: Yes Status: Acute (6) Acute CHF (congestive heart failure) Current Visit: Yes Status: Acute Qualifiers: Congestive heart failure type: systolic Qualified Code(s): I50.21 - Acute systolic (congestive) heart failure (7) Hyponatremia Current Visit: Yes Status: Acute - Constitutional Vitals: Temp Pulse Resp BP Pulse Ox 97.7 F 111 18 111/77 95 08/11/17 17:04 08/11/17 17:04 08/11/17 17:04 08/11/17 17:04 08/11/17 17:04 Internal Medicine: Result - Labs CBC & Chem 7: 08/11/17 04:50 08/11/17 14:55 Labs: Short CBC 08/11/17 Range/Units 04:50 WBC 8.5 (4.3-11.1) K/mcL Hgb 13.2 (12.9-16.9) g/dL Hct 37.1 L (37.5-50.1) % Plt Count 227 (140-400) K/mcL Neutrophils # 4.8 (1.6-8.9) K/mcL BMP 08/11/17 08/11/17 05:27 14:55 Sodium 134 L 132 L Potassium 4.5 4.3 Chloride 98 98 Carbon Dioxide 21 21 BUN 20 D 23 Creatinine 2.29 H D 2.39 H Glucose 131 H 115 H Calcium 9.1 8.6 - ABG Interpretation ABG results: PT/INR, D-dimer PT 18.1 Seconds (9.4-12.1) H 08/11/17 12:35 - Impressions Impressions Chest X-Ray 08/11/17 08:55 IMPRESSION: Cardiomegaly with no evidence of CHF. Scarring versus atelectasis in the left lung base D/ / Cristi Lynn MD / Cristi Lynn MD Interpreting Provider: Cristi Lynn MD Pulmonary Perfusion Imaging 08/11/17 09:29 IMPRESSION: Low Probability for Pulmonary Embolus. D/ / Lolis Lyn MD / Lolis Lyn MD Interpreting Provider: Lolis Lyn MD - Attending Attestation I examined this patient and my medical decision-making was reviewed with the Resident Physician, Dr. Klein. I agree with the documented findings, disposition and treatment plan as described except to the extent set forth below. I have independently obtained history and examined the patient and my findings are summarized below: Patient's mental status has improved from yesterday. He is awake alert oriented 3 currently. Heart is tachycardic, regular. Lungs are clear. Plan: New issue today is severe acute kidney injury secondary to hypotension and intravascular fluid depletion: We will start IV fluids. Hold metoprolol and discontinue diltiazem. We will obtain a retroperitoneal ultrasound to rule out obstructive uropathy.
[2017-08-11 12:57] LABS: INR 1.7; Prothrombin Time 18.1 Seconds (9.4-12.1)
[2017-08-11 15:35] LABS: Calcium 8.6 mg/dL (8.6-10.8); Potassium 4.3 mEq/L (3.5-4.5)
[2017-08-11] MEDS: Aspirin Enteric Coated 81 MG Tablet PO SCH (16:49)
[2017-08-11] MEDS ORDERED: *HR* Phytonadione 5 MG TABLET PO ONE (16:53)
--- NOTE | 2017-08-11 18:34 | Electrocardiograph Report ---
[place] [id number] Test Date: 2017-08-10 Pat Name: Shane Vinson Department: 110 Room: 2N03 Gender: M Dental Chairside Assistant: : 1960 Requested By: Keyshawn Watkins Order Number: [id number] Reading MD: Haim Hernandez MD Measurements Intervals [place] Rate: 120 P: AR: 0 QRS: 270 QRSD: 106 T: -34 QT: 277 QTc: 348 Interpretive Statements ATRIAL FLUTTER/TACHYCARDIA WITH RAPID VENTRICULAR RESPONSE Poor R wave progression Electronically Signed On 08-11-2017 18:32:36 EDT by Haim Hernandez MD
[2017-08-12] MEDS ORDERED: *HR* LORazepam 2 MG/ML VIAL IVP ONE ×2 (01:00→22:45)
[2017-08-12] MEDS: *HR* Heparin 5,000 UNIT/ML VIAL SQ SCH ×4 (01:16→23:34)
[2017-08-12 05:17] LABS: Basophils % 0.1 %; Eosinophils % 0.2 %; Hematocrit 35.1 % (37.5-50.1); Hemoglobin 12.5 g/dL (12.9-16.9); Immature Granulocytes % 0.5 % (0-4); Lymphocytes # 3.5 K/mcL (0.6-4.6); Lymphocytes % 39.6 %; Mean Corpuscular HGB Conc 35.6 g/dL (31.6-35.5); Mean Corpuscular Hemoglobin 30.3 pg (28.0-33.3); Mean Corpuscular Volume 85.2 fL (83.0-100.0); Mean Platelet Volume 9.9 fL (9.4-12.4); Monocytes # 0.8 K/mcL (0.0-1.3); Monocytes % 9.5 %; Neutrophils # 4.4 K/mcL (1.6-8.9); Nucleated Red Blood Cells 0.3 /100 WBC (0); Platelet Count 242 K/mcL (140-400); Red Blood Count 4.12 M/mcL (4.19-5.50); Red Cell Distribution Width 13.2 % (11.5-14.5); Segmented Neutrophils % 50.1 %
[2017-08-12 05:34] LABS: Albumin 3.3 g/dL (3.5-5.0); Albumin/Globulin Ratio 1.1 (1.1-2.2); Bilirubin,Total 1.9 mg/dL (0.2-1.2); Potassium 4.4 mEq/L (3.5-4.5); Total Protein 6.3 g/dL (6.0-8.3)
[2017-08-12] MEDS: Aspirin Enteric Coated 81 MG Tablet PO SCH (09:18)
[2017-08-12] MEDS: Nicotine 14 MG PATCH.TD24 TD SCH (09:18)
[2017-08-12] MEDS: Metoprolol XL (24 HR) Succ 25 MG TAB.ER.24H PO SCH (09:18)
[2017-08-12] MEDS: Folic Acid 1 MG TABLET PO SCH (09:18)
[2017-08-12] MEDS: Thiamine (B-1) 100 MG TABLET PO SCH (09:18)
--- NOTE | 2017-08-12 10:42 | Electrophysiology Consult Note ---
Date of Encounter: 08/12/17 Time of Encounter: 10:31 Assessment and Plan (1) Atrial flutter Current Visit: Yes Status: Acute Per electrophysiology: Atrial flutter with RVR with HR up to 150 on admission. Likely secondary to ETOH abuse. HR difficult to control due to hypotension, hepatic disease, and AMIE. Did not tolerate cardizem gtt d/t hypotension. Unable to add amiodarone due to elevated liver enzymes. He is not a candidate for DCCV d/t contraindication for AC. HR 115 still. CHADS VASC= 2 for CHF and HTN. Ideally he should be on anticoagulation. INR 2.0 on admission without anticoagulation. INR 1.9 today. With elevated coags and ETOH abuse he is not a good candidate for skilled nursing AC. Patient reports he is going to stop drinking. This can be re-evaluated in future. Rate control is recommended. WIll have to allow for higher heart rates in the low 100's. If blood pressure continues to improve consider increasing metoprolol. Please call with questions. Discussed with primary cardiology. No further recommendations. Out-pt f/u. Please call with questions. Qualifiers: Atrial flutter type: unspecified Qualified Code(s): I48.92 - Unspecified atrial flutter Discussion w patient/family: The assessment and plan as outlined above was discussed with the patient and/or family members who expressed understanding and agreement. All questions were answered. Thank you for involving us in the care of your patient. Please call with any questions. History of Present Illness Consult date: 08/12/17 Requesting physician: Marlon Quintanilla Consult reason: Aflutter Chief complaint: AMS History of present illness: Mr. 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 During his stay he was found to have atrial flutter with RVR, HR 140-150. TTE completed revealed EF 20%. He is thought to likely have ETOH cardiomyoapthy. He reports drinking 10-12 beers a day. he says he often lost count of how many beers he drank. He was treated for ETOH withdrawl. He was confused and had decreased LOC for the first four days of his stay. He is now alert and oriented. On my exam he denies chest pain or SOB. Denies palpitations. Said he slept well for the first time in three days. Denies history of atrial flutter or CAD. Reports recent hospital stay at [facility] for spontaneous collapsed lung. Says they did multiple tests on his heart. He is unsure of findings. Records from [facility] was ordered. Past Med Surg Social Fam HX - Past Medical History Medical history: COPD, hypertension Psychiatric history: no psych history - Past Surgical History Surgical History: tracheostomy - Social History Smoking Status: Current every day smoker Packs per day: 0.5 Smokeless Tobacco Status: No Alcohol use: heavy Drug use: marijuana Medications and Allergies No Known Home Drugs 08/06/17 [History] 3 Allergy/AdvReac Type Severity Reaction Status Date / Time shellfish derived Allergy Anaphylaxis Verified 08/06/17 10:10 All Systems Review: A 10-system review of systems was performed and is negative for pertinent findings except as documented above in the HPI. Physical Examination Vital Signs, Last 4 Hours Temp Pulse Resp BP Pulse Ox 08/12/17 09:38 110 08/12/17 07:55 115 08/12/17 07:51 97.6 F 115 22 105/87 99 General: Conversant, No Apparent Distress HEENT: Atraumatic, Normocephaly, Mucus Membranes Moist Neck: No JVD, Normal carotid pulses Cardiac: Reg Rate and Rhythm, Normal S1 and S2, No Murmur, Other (atrial flutter on telemetry) Lungs: Normal Breath Sounds, No Wheeze, Rales, Rhonchi Neuro: Alert and responsive, No focal deficits noted Abdomen: Soft, Non-Tender Skin: No rashes noted on visualized skin Musculoskeletal: No Chest Wall Tenderness Extremities: No Clubbing, No Cyanosis, No Edema, Normal Pulses Results 08/12/17 04:35 08/12/17 04:35 Lab Results 08/11/17 08/11/17 08/12/17 12:35 14:55 04:35 WBC 8.8 Hgb 12.5 L Hct 35.1 L Plt Count 242 INR 1.7 Sodium 132 L Potassium 4.3 Chloride 98 Carbon Dioxide 21 BUN 23 Creatinine 2.39 H Glucose 115 H Calcium 8.6 Total Bilirubin AST ALT Alkaline Phosphatase 08/12/17 04:35 WBC Hgb Hct Plt Count INR Sodium 132 L Potassium 4.4 Chloride 98 Carbon Dioxide 20 BUN 27 H Creatinine 2.10 H Glucose 96 Calcium 9.0 Total Bilirubin 1.9 H AST 258 H ALT 283 H Alkaline Phosphatase 152 H Echocardiogram 08/06/17 15:19 Impressions: There is severe LV systolic dysfunction with regional variations, EF 25-30%. RV is normal in size. Function is severely reduced. Bi-atrial enlargement. Mild aortic regurgitation. Moderate mitral regurgitation. Moderate tricuspid regurgitation. Mild pulmonic regurgitation. Mild pulmonary hypertension. The IVC is dilated. Head CT 08/06/17 15:20 IMPRESSION: No acute intracranial abnormality. D/ / Nicholas Vicente MD / Nicholas Vicente MD Interpreting Provider: Nicholas Vicente MD Liver Ultrasound 08/07/17 08:45 IMPRESSION: 1. The visualized portion the pancreas appears normal. 2. Significant hepatic steatosis. No intrahepatic mass. 3. Nonspecific mild perihepatic and pericholecystic ascites. 4. Biliary sludge with no evidence of cholelithiasis or findings to suggest acute cholecystitis. D/ / 08/07/2017 10:05:41 Dusty Jamil MD / [facility] Interpreting Provider: Dusty Jamil MD Chest X-Ray 08/11/17 08:55 IMPRESSION: Cardiomegaly with no evidence of CHF. Scarring versus atelectasis in the left lung base D/ / Cristi Lynn MD / Cristi Lynn MD Interpreting Provider: Cristi Lynn MD Pulmonary Perfusion Imaging 08/11/17 09:29 IMPRESSION: Low Probability for Pulmonary Embolus. D/ / Lolis Lyn MD / Lolis Lyn MD Interpreting Provider: Lolis Lyn MD Retroperitoneum Ultrasound 08/12/17 08:30 IMPRESSION: 1. No definite sonographic abnormalities of the kidneys. Of note, evaluation of renal parenchymal echogenicity is partially limited by increased hepatic echogenicity related to underlying stenosis, although the echogenicity appears within normal limits. 2. Normal sonographic appearance of the urinary bladder. 3. Incidental note of trace to small ascites. D/ / Adolph Kirk MD / Adolph Kirk MD Interpreting Provider: Adolph Kirk MD - Imaging and Cardiology Echo: report reviewed - EKG Interpretation EKG results cardiology: personally reviewed Consult Discharge Plan - Plan Referrals: Jody Whitley CNP [Primary Care Provider] - 08/19/17 2:00 pm
--- NOTE | 2017-08-12 11:03 | Internal Med Progress Note ---
Date of Encounter: 08/12/17 Time of Encounter: 10:00 - Assessment and plan (1) Acute CHF (congestive heart failure) Current Visit: Yes Status: Acute Assessment and plan: NICHOLE shows an ejection fraction of 25-30%. Patient's INR was 1.7 yesterday. Awaiting INR today. -VQ scan negative -If patients INR stabilizes, we will AC for NICHOLE with DCCV. -Patient complains of fatigue. CXR shows no pulmonary edema. Patient's blood pressures slightly elevated today. We will consider adding BB as pressure improves. Continue with heparin DVT prophylaxis. -Causes of CHF include prolonged tachycardia inducing cardiomyopathy as well as alcoholic induced dilated cardiomyopathy. This tachycardia could be contributing to patient's congestive heart failure. Further, cardiology is still considering [facility] to rule out any underlying occlusions that could be contributing to patient's CHF. Qualifiers: Congestive heart failure type: systolic Qualified Code(s): I50.21 - Acute systolic (congestive) heart failure (2) Atrial flutter Current Visit: Yes Status: Acute Assessment and plan: Patient's tachycardia is prolonged with regular heart beat in the low 120's consistent with atrial flutter with RVR and 2:1 conduction. -Patient has been tachycardic for 5 days. -He did not tolerate metoprolol or cardizem drip. -Patient was NPO overnight for potential cardioversion today. We restarted diet as patient's INR still unstable. We have also ordered vitamin K due to patient' s drinking history. -awaiting cardiology's recommendations Qualifiers: Atrial flutter type: unspecified Qualified Code(s): I48.92 - Unspecified atrial flutter (3) Hepatic encephalopathy Current Visit: Yes Status: Acute Assessment and plan: Patient is awake and alert. LFTs continually trending down consistent with alcohol-induced transaminitis. Ammonia levels have normalized. Tylenol level is undetectable. (4) History of alcoholism Current Visit: Yes Status: Acute Assessment and plan: Patient being treated according to CIWA protocol. He is awake and alert and resting comfortably. Patient committed to alcohol cessation. (5) DVT prophylaxis Current Visit: Yes Status: Acute Assessment and plan: Heparin DVT prophylaxis. (6) Tobacco use Current Visit: Yes Status: Acute (7) Hyponatremia Current Visit: Yes Status: Acute - Subjective Interval history: 56 yo male admitted for evaluation of AMS, hyponatremia, atrial flutter with RVR , anasarca, and alcohol withdrawal. Patient is alert, yet he states he is very tired. He denies abdominal pain. He denies chest pain, nausea, or diaphoresis; however, he states he feels chest palpitations and occasional shortness of breath. He says he gets anxious when he lays down as he feels as though he can' t breathe. - Constitutional Vitals: Temp Pulse Resp BP Pulse Ox 97.6 F 110 22 105/87 99 08/12/17 07:51 08/12/17 09:38 08/12/17 07:51 08/12/17 07:51 08/12/17 07:51 General appearance: Present: A&O X 3, pleasant - Head Head exam: Present: atraumatic, normal inspection, normocephalic - Respiratory Respiratory exam: Present: CTAB. Absent: rhonchi, stridor, wheezes - Cardiovascular Cardiovascular exam: Present: tachycardia. Absent: diastolic murmur, rubs, systolic murmur - GI/Abdominal GI/Abdominal exam: Present: normal bowel sounds, soft. Absent: tenderness - Extremities Exam Extremities exam: Present: warm, radial pulses palpable and symmetrical. Absent : calf tenderness, pedal edema Internal Medicine: Result - Labs CBC & Chem 7: 08/12/17 04:35 08/12/17 04:35 Labs: Short CBC 08/12/17 Range/Units 04:35 WBC 8.8 (4.3-11.1) K/mcL Hgb 12.5 L (12.9-16.9) g/dL Hct 35.1 L (37.5-50.1) % Plt Count 242 (140-400) K/mcL Neutrophils # 4.4 (1.6-8.9) K/mcL BMP 08/11/17 08/12/17 14:55 04:35 Sodium 132 L 132 L Potassium 4.3 4.4 Chloride 98 98 Carbon Dioxide 21 20 BUN 23 27 H Creatinine 2.39 H 2.10 H Glucose 115 H 96 Calcium 8.6 9.0 Liver Function 08/12/17 Range/Units 04:35 Total Bilirubin 1.9 H (0.2-1.2) mg/dL AST 258 H (5-34) Units/L ALT 283 H (0-55) Units/L Alkaline Phosphatase 152 H (38-126) Units/L Albumin 3.3 L (3.5-5.0) g/dL - ABG Interpretation ABG results: PT/INR, D-dimer PT 18.1 Seconds (9.4-12.1) H 08/11/17 12:35 - Impressions Impressions Pulmonary Perfusion Imaging 08/11/17 09:29 IMPRESSION: Low Probability for Pulmonary Embolus. D/ / Lolis Lyn MD / Lolis Lyn MD Interpreting Provider: Lolis Lyn MD Retroperitoneum Ultrasound 08/12/17 08:30 IMPRESSION: 1. No definite sonographic abnormalities of the kidneys. Of note, evaluation of renal parenchymal echogenicity is partially limited by increased hepatic echogenicity related to underlying stenosis, although the echogenicity appears within normal limits. 2. Normal sonographic appearance of the urinary bladder. 3. Incidental note of trace to small ascites. D/ / Adolph Kirk MD / Adolph Kirk MD Interpreting Provider: Aodlph Kirk MD Consult Discharge Plan - Plan Referrals: Jody Whitley, [employer] [Primary Care Provider] - 08/19/17 2:00 pm
[2017-08-12 12:06] LABS: INR 1.9; Prothrombin Time 20.3 Seconds (9.4-12.1)
--- NOTE | 2017-08-12 14:01 | Discharge Summary ---
<CharanjitmarlyTori martin H - Last Filed: 08/12/17 14:50> Date of Encounter: 08/12/17 Time of Encounter: 10:20 - Discharge Diagnosis (1) Acute CHF (congestive heart failure) Priority: Primary Status: Acute Qualifiers: Congestive heart failure type: systolic Qualified Code(s): I50.21 - Acute systolic (congestive) heart failure (2) Atrial flutter Priority: Secondary Status: Acute Qualifiers: Atrial flutter type: unspecified Qualified Code(s): I48.92 - Unspecified atrial flutter (3) Hepatic encephalopathy Priority: Secondary Status: Acute (4) History of alcoholism Priority: Secondary Status: Acute (5) DVT prophylaxis Priority: Secondary Status: Acute (6) Tobacco use Priority: Secondary Status: Acute (7) Hyponatremia Priority: Secondary Status: Acute - Discharge Medications Home Medications: No Known Home Drugs 08/06/17 [History] Allergies/Adverse Reactions: 3 Allergy/AdvReac Type Severity Reaction Status Date / Time shellfish derived Allergy Anaphylaxis Verified 08/06/17 10:10 Procedures/tests Complete & Pending: Procedures Performed prior 72 hours Category Date Time Status US retroperitoneal comp [US] Stat Exams 08/12/17 08:30 Completed VQ Scan [NM pul vent and perfuse] [NM] Stat Exams 08/11/17 09:29 Completed ECG 12 lead ECG [ECG] Routine Y 08/11/17 15:47 Completed EKG [ECG 12 lead ECG] [ECG] Routine Y 08/10/17 12:18 Completed Date of admission: 08/06/17 14:37 Primary care physician: Jody Whitley CNP Consults: 08/06/17 15:36 Consult to Process Consultant [CONS] Routine Reason for SW Consult: Discharge planning 08/06/17 15:54 Consult to Cardiology [CONS] Routine Comment: Consulting Provider: Cardiology Ani Reason for Consult: aflutter Time Notified: 15:54 Call Completed: No 08/06/17 15:55 Consult to Nephrology [CONS] Routine Consulting Provider: Kidney [facility] HTN Dada MARTÍNEZ Reason for Consult: hyponatremia Time Notified: 15:55 Call Completed: Yes 08/09/17 10:22 Consult to Invasive Line Access Team [CONS] Routine Reason for Consult: LIMITED ACCESS Line Type: EPIV 08/12/17 10:31 Consult to Electrophysiology (EP) [CONS] Routine Consulting Provider: Electrophysiology Ani Reason for Consult: a.flutter RVR, difficult to rate control. Call Completed: Yes - Patient Status Disposition: Transfer Critical Access Hosp Condition: Fair Functional capacity at discharge: independent ambulation Overall status at discharge: patient is not back to baseline - Discharge Instructions Follow Up With: Jody Whitley, APPLICATIONS PROCESSOR [Primary Care Provider] - (Patient went to [facility], no PCP appointment needed) Additional Instructions: as per care at [facility]. - Diet and Activity Activity: as per physical therapy Diet: low fat, low cholesterol Hospital course: Mr. Vinson is a 56 year old male with PMHx HTN, alcoholism, who was admitted to the hospital for evaluation of altered mental status, hyponatremia, atrial flutter with RVR, anasarca, and alcohol withdrawal. Patient had outpatient labs drawn by his primary care physician which showed him to be hyponatremic at 117. When he presented to the emergency department he was found to be confused and hallucinating. He was also found to be in atrial flutter with RVR. He had a BNP of 1172. He was started on diuresis for hypervolemic hyponatremia. He subsequently received an echocardiogram which showed dilated cardiomyopathy with an ejection fraction of 25-35%. He was also found to be in atrial flutter with RVR at a heart rate in the 110s. Patient was in acute alcohol withdrawal and was started on the CIWA protocol. Nephrology was consulted about the patient's hypervolemic hyponatremia in the setting of acute alcoholic hepatitis. Patient's viral hepatitis panel was negative. He was believed to have alcoholic hepatitis contributing to his mild ascites and elevation of liver enzymes. Patient's elevated liver enzymes slowly began to resolve during the course of his stay. On day 4 his Ativan was decreased from 4-2 mg, and his mental status improved significantly. Patient was placed on beta blockers and cardizem gtt, but could not tolerate due to hypotension. Of note, cardiology was unable to add amiodarone to her medications due to patient's elevated liver enzymes. We ordered a CXR to evaluate patients significant shortness of breath and orthopnea with showed no pulmonary edema or infiltrates. We proceeded to a V /Q scan to evaluate for a PE as patient was short of breath with sustained tachycardia. V/Q scan showed low probability for PE. Patient developed an AMIE yesterday with a creatinine of 2.39. We ordered a retroperitoneal US which was negative and gave the patient IV fluids. We believed the AMIE was due to over- diuresing the patient earlier in his hospital stay. We waited for patient's INR to drop to normal levels, which at that point we planned to do a cardioversion. However after the INR initially trended downwards, it began to trend upwards and today is found to be 1.9. Because patient is a poor candidate for long term care administrator anticoagulation due to his alcohol abuse, he is not a candidate for DCCV. Patient reports he is going to stop drinking. Rate control is recommended, however, we have been unable to achieve that during this hospital stay. Due to cardiology not having any further recommendations at this time, we will be transferring him to [facility] today for a second opinion. - Time Spent with Patient Total time spent providing and/or coordinating discharge services: Greater than 30 minutes - Constitutional Vitals: Temp Pulse Resp BP Pulse Ox 98.6 F 115 16 121/88 94 08/12/17 11:18 08/12/17 11:18 08/12/17 11:18 08/12/17 11:18 08/12/17 11:18 General appearance: Present: A&O X 3, pleasant - Head Head exam: Present: atraumatic, normal inspection, normocephalic - Respiratory Respiratory exam: Present: CTAB. Absent: rales, rhonchi, stridor, wheezes - Cardiovascular Cardiovascular exam: Present: systolic murmur, tachycardia - GI/Abdominal GI/Abdominal exam: Present: soft. Absent: tenderness, no peritoneal signs - Extremities Exam Extremities exam: Present: warm, radial pulses palpable and symmetrical. Absent : calf tenderness, pedal edema, tenderness - Skin Skin exam: Present: dry, intact, warm <Britton Yip - Last Filed: 08/15/17 18:46> Date of Encounter: 08/12/17 - Discharge Diagnosis (1) Hepatic encephalopathy Status: Acute (2) History of alcoholism Status: Acute (3) Atrial flutter Status: Acute Qualifiers: Atrial flutter type: unspecified Qualified Code(s): I48.92 - Unspecified atrial flutter (4) DVT prophylaxis Status: Acute (5) Tobacco use Status: Acute (6) Acute CHF (congestive heart failure) Status: Acute Qualifiers: Congestive heart failure type: systolic Qualified Code(s): I50.21 - Acute systolic (congestive) heart failure (7) Hyponatremia Status: Acute Date of admission: 08/06/17 14:37 Primary care physician: Jody Whitley CNP Consults: 08/06/17 15:36 Consult to Process Consultant [CONS] Routine Reason for SW Consult: Discharge planning 08/06/17 15:54 Consult to Cardiology [CONS] Routine Comment: Consulting Provider: Cardiology Ani Reason for Consult: aflutter Time Notified: 15:54 Call Completed: No 08/06/17 15:55 Consult to Nephrology [CONS] Routine Consulting Provider: Kidney & HTN Spclst TANYA Reason for Consult: hyponatremia Time Notified: 15:55 Call Completed: Yes 08/09/17 10:22 Consult to Invasive Line Access Team [CONS] Routine Reason for Consult: LIMITED ACCESS Line Type: EPIV 08/12/17 10:31 Consult to Electrophysiology (EP) [CONS] Routine Consulting Provider: Electrophysiology Ani Reason for Consult: a.flutter RVR, difficult to rate control. Call Completed: Yes Hospital course: Mr. Vinson is a 56 year old male - Time Spent with Patient Total time spent providing and/or coordinating discharge services: - Constitutional Vitals: Temp Pulse Resp BP Pulse Ox 98.0 F 111 26 124/93 98 08/13/17 07:23 08/13/17 07:23 08/13/17 07:23 08/13/17 07:23 08/13/17 07:23 - Attending Attestation I examined this patient and my medical decision-making was reviewed with the Resident Physician, Dr. Klein. I agree with the documented findings, disposition and treatment plan as described except to the extent set forth below. My findings are summarized below: Patient is awake, alert and oriented. He understands the risks and benefits of his transfer to [facility] and expected course of care. He is in agreement. On exam he is in no acute distress. Heart is tachycardic and regular rhythm; lungs are clear. Abdomen is soft.
--- NOTE | 2017-08-12 19:35 | Electrocardiograph Report ---
[place] [id number] Test Date: 2017-08-11 Pat Name: Shane Vinson Department: 110 Room: 2N03 Gender: M Diet Therapist: TONYA : 1960 Requested By: Britton Yip Order Number: [id number] Reading MD: Haim eHrnandez MD Measurements Intervals [place] Rate: 110 P: NE: 0 QRS: -76 QRSD: 103 T: 16 QT: 382 QTc: 447 Interpretive Statements SINUS TACHYCARDIA Poor R wave progression MARKED LEFT AXIS DEVIATION Electronically Signed On 08-12-2017 19:34:19 EDT by Haim Hernandez MD
[2017-08-13 04:54] LABS: Basophils % 0.2 %; Eosinophils % 0.1 %; Hematocrit 33.1 % (37.5-50.1); Hemoglobin 12.1 g/dL (12.9-16.9); Immature Granulocytes % 0.3 % (0-4); Lymphocytes # 3.2 K/mcL (0.6-4.6); Mean Corpuscular HGB Conc 36.6 g/dL (31.6-35.5); Mean Corpuscular Hemoglobin 31.2 pg (28.0-33.3); Mean Corpuscular Volume 85.3 fL (83.0-100.0); Mean Platelet Volume 9.9 fL (9.4-12.4); Monocytes # 0.9 K/mcL (0.0-1.3); Monocytes % 8.5 %; Neutrophils # 5.9 K/mcL (1.6-8.9); Nucleated Red Blood Cells 0.3 /100 WBC (0); Platelet Count 219 K/mcL (140-400); Red Blood Count 3.88 M/mcL (4.19-5.50); Red Cell Distribution Width 13.2 % (11.5-14.5); Segmented Neutrophils % 58.9 %
[2017-08-13 05:09] LABS: Albumin 3.2 g/dL (3.5-5.0); Bilirubin,Total 2.3 mg/dL (0.2-1.2); Calcium 9.1 mg/dL (8.6-10.8); Globulin 3.2 g/dL (2.4-3.5); Potassium 4.9 mEq/L (3.5-4.5); Total Protein 6.4 g/dL (6.0-8.3)
[2017-08-13 05:25] LABS: Prothrombin Time 22.4 Seconds (9.4-12.1)
[2017-08-13 07:24] VITALS: BP 124/93
[2017-08-13] MEDS: Thiamine (B-1) 100 MG TABLET PO SCH (08:40)
[2017-08-13] MEDS: Aspirin Enteric Coated 81 MG Tablet PO SCH (08:40)
[2017-08-13] MEDS: Metoprolol XL (24 HR) Succ 25 MG TAB.ER.24H PO SCH (08:40)
[2017-08-13] MEDS: Folic Acid 1 MG TABLET PO SCH (08:40)
[2017-08-13] MEDS: *HR* Heparin 5,000 UNIT/ML VIAL SQ SCH (08:40)
[2017-08-13] MEDS: Nicotine 14 MG PATCH.TD24 TD SCH (08:41)
== END 2017-08-13 09:30 | disposition critical access hospital (66) | DRG 292 ==
LOC: 2NNU 14:37
PROVIDERS: ADMIT Family Medicine; ATTEND Internal Medicine